=== PATIENT | male | born 1985 | race Caucasian/White ===

== ENCOUNTER 2016-11-15 04:02 | Inpatient (IN) | payer OTHER ==
[~2016-11-15] VITALS: Ht 175.3 cm; Wt 70.3 kg
[2016-11-15 06:34] VITALS: BP 154/84; PULSE 92; RESP 20; TEMP 98.5; O2SAT 98
[2016-11-15] MEDS ORDERED: MAGNESIUM HYDROXIDE SUSP 30 ML CUP PO PRN (06:45)
[2016-11-15] MEDS ORDERED: ALUMINUM/MAGNESIUM/SIMETH 30 ML CUP PO PRN (06:45)
[2016-11-15] MEDS ORDERED: ACETAMINOPHEN 325 MG TAB PO PRN (06:45)
[2016-11-15] MEDS ORDERED: LORazepam 1 MG TAB PO PRN (06:45)
[2016-11-15] MEDS ORDERED: LORazepam 2 MG/ML VIAL IM PRN (06:45)
[2016-11-15] MEDS ORDERED: NICOTINE 21 MG/24 HR PATCH T-DERMAL SCH (09:00)
[2016-11-15 12:48] VITALS: BP 156/92; PULSE 127; RESP 16; O2SAT 95
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
[2016-11-15 19:55] VITALS: BP 146/109; PULSE 83; RESP 18; TEMP 98.6; O2SAT 99
[2016-11-15] MEDS ORDERED: REMOVE OLD NICOTINE PATCH T-DERMAL SCH (21:00)
[2016-11-16 00:48] VITALS: BP 156/92; PULSE 127; RESP 16; O2SAT 95
[2016-11-16 00:55] VITALS: O2SAT 97
[2016-11-16 01:05] VITALS: BP 154/89; PULSE 107; RESP 18; O2SAT 98
[2016-11-16] MEDS ORDERED: SUCCINYLCHOLINE CHLORIDE 200 MG/10 ML VIAL ONE (01:19)
[2016-11-16] MEDS ORDERED: ETOMIDATE 20 MG/10 ML VIAL ONE (01:19)
[2016-11-16] MEDS ORDERED: ROCURONIUM INJ 50 MG/5 ML VIAL ONE (01:21)
[2016-11-16] MEDS ORDERED: PROPOFOL 1000 MG/100 ML INJ 100 ML ONE (01:22)
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
[2016-11-17] MEDS ORDERED: ACET325T PO (08:38)
[2016-11-17] MEDS ORDERED: DOCU100S G-TUBE (08:38)
[2016-11-17] MEDS ORDERED: HALO5P IM (08:38)
[2016-11-17] MEDS ORDERED: TIMO0.5S30 EACH EYE (10:04)
[2016-11-17] MEDS ORDERED: Brimonidine 0.2% Opth Soln EACH EYE (10:04)
== END 2016-11-16 01:13 | disposition short-term general hospital (02) | DRG 882 ==
LOC: H260 06:31
PROVIDERS: ADMIT Psychiatry & Neurology Psychiatry; ATTEND Psychiatry & Neurology Psychiatry
DX: F43.25 Adjustment disorder with mixed disturbance of emotions and conduct (principal); S05.32XA Ocular laceration without prolapse or loss of intraocular tissue, left eye, initial encounter; F10.20 Alcohol dependence, uncomplicated; Z59.0 Homelessness; F19.10 Other psychoactive substance abuse, uncomplicated; X78.8XXA Intentional self-harm by other sharp object, initial encounter; Y92.230 Patient room in hospital as the place of occurrence of the external cause; Z91.5 Personal history of self-harm
CPT/HCPCS: J0330

== ENCOUNTER 2016-11-16 01:24 | Inpatient (IN) | payer OTHER ==
[2016-11-16] VITALS (22 sets, daily range): BP systolic 88–115; BP diastolic 53–69; PULSE 78–108; RESP 14–16; TEMP 98–99.4; O2SAT 97–100
[2016-11-16] MEDS ORDERED: DIPHTH/TETANUS/ACEL PERTUSSIS (BOOSTER) 0.5 ML VIAL/PFS IM ONE (01:31)
[2016-11-16] MEDS ORDERED: ceFAZolin 2 GM PREMIX 50 ML ONE (01:31)
[2016-11-16 01:42] LABS: AUTOMATED NEUTROPHIL # 11.3 TH/MM3 (1.8-7.7); BASOPHIL # 0.1 TH/MM3 (0-0.2); EOSINOPHIL # 0.2 TH/MM3 (0-0.4); EOSINOPHIL % 1.8 % (0.0-4.0); HEMATOCRIT 43.9 % (39.0-51.0); LYMPH % 8.6 % (9.0-44.0); LYMPHOCYTE # 1.1 TH/MM3 (1.0-4.8); MEAN CELL VOLUME 90.6 FL (80.0-100.0); MEAN CORPUSCULAR HEMOGLOBIN 32.3 PG (27.0-34.0); MEAN CORPUSCULAR HGB CONC 35.7 % (32.0-36.0); MONO % 4.6 % (0.0-8.0); PLATELET COUNT 175 TH/MM3 (150-450); RED BLOOD COUNT 4.84 MIL/MM3 (4.50-5.90); RED CELL DISTRIBUTION WIDTH 13.7 % (11.6-17.2); WHITE BLOOD COUNT 13.4 TH/MM3 (4.0-11.0)
[2016-11-16 01:43] LABS: HEMO FLAGS AUTO DIFF
[2016-11-16 01:50] LABS: APTT (PATIENT) 23.9 SEC (24.3-30.1); PROTHROMBIN TIME - PATIENT 11.2 SEC (9.8-11.6)
--- NOTE | 2016-11-16 01:55 | RADRPT ---
EXAM DATE/TIME: 11/16/2016 01:43 [facility] COMPARISON: No previous studies available for comparison. INDICATIONS : Trauma. Foreign body stuck in left eye. RADIATION DOSE: 36.15 CTDIvol (mGy) MEDICAL HISTORY : Non-responsive. SURGICAL HISTORY : Non-responsive. ENCOUNTER: Initial ACUITY: 1 day PAIN SCALE: Non-responsive LOCATION: Left cranial TECHNIQUE: Multiple contiguous axial images were obtained of the head. Using automated exposure control and adj ustment of the mA and/or kV according to patient size, radiation dose was kept as low as reasonably a chievable to obtain optimal diagnostic quality images. FINDINGS: CEREBRUM: The ventricles are normal for age. No evidence of midline shift, mass lesion, hemorrhage or acute in farction. No extra-axial fluid collections are seen. POSTERIOR FOSSA: The cerebellum and brainstem are intact. The 4th ventricle is midline. The cerebellopontine angle i s unremarkable. EXTRACRANIAL: The visualized portion of the orbits is intact. SKULL: The calvaria is intact. No evidence of skull fracture. CONCLUSION: Normal examination. Duane Avendaño MD on November 16, 2016 at 1:53 Board Certified Radiologist. This report was verified electronically.
--- NOTE | 2016-11-16 01:56 | RADRPT ---
EXAM DATE/TIME: 11/16/2016 01:18 [facility] COMPARISON: No previous studies available for comparison. INDICATIONS : Post intubation. MEDICAL HISTORY : Unobtainable. SURGICAL HISTORY : Unobtainable. ENCOUNTER: Initial ACUITY: 1 day PAIN SCORE: Non-responsive. LOCATION: Bilateral chest FINDINGS: A single view of the chest demonstrates the lungs to be symmetrically aerated without evidence of mas s, infiltrate or effusion. The cardiomediastinal contours are unremarkable. Osseous structures are intact. CONCLUSION: Normal examination. Endotracheal tube at the level of the clavicles. Duane Avendaño MD on November 16, 2016 at 1:54 Board Certified Radiologist. This report was verified electronically.
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
--- NOTE | 2016-11-16 01:58 | RADRPT ---
EXAM DATE/TIME: 11/16/2016 01:43 [facility] COMPARISON: No previous studies available for comparison. INDICATIONS : Foreign body stuck into left eye. RADIATION DOSE: 56.55 CTDIvol (mGy) MEDICAL HISTORY : Non-responsive. SURGICAL HISTORY : Non-responsive. ENCOUNTER: Initial ACUITY: 1 day PAIN SCORE: Non-responsive LOCATION: Left facial TECHNIQUE: Volumetric scanning of the facial bones was performed. Using automated exposure control and adjustme nt of the mA and/or kV according to patient size, radiation dose was kept as low as reasonably achiev able to obtain optimal diagnostic quality images. FINDINGS: ORBITS: The orbital and infraorbital osseous structures are intact. The retroconal structures have a normal configuration. No radiopaque foreign bodies are seen. NASAL BONE: The nasal bone and maxillary spine are intact ZYGOMATIC ARCHES: Symmetric without evidence of fracture. SINUSES: The maxillary, ethmoid and frontal sinuses are intact. No air-fluid levels seen. NASAL CAVITY: The nasal septum is intact and midline. The lacrimal ducts are intact. SOFT TISSUES: No radiopaque foreign bodies seen. No soft-tissue swelling is seen. INTRACRANIAL: No intracranial air seen. CRIBIFORM PLATE: Grossly intact. CONCLUSION: Normal examination. There is some fluid in the nasopharynx and oropharynx status post intubation Duane Avendaño MD on November 16, 2016 at 1:56 Board Certified Radiologist. This report was verified electronically.
[2016-11-16 02:07] LABS: SCAN/DIFF AUTO DIFF CONFIRMED
[2016-11-16] MEDS ORDERED: fentaNYL DRIP 250 ML IV SCH ×2 (02:30→03:15)
[2016-11-16] MEDS ORDERED: MIDAZOLAM 100 MG/ML INJ 100 ML IV SCH (02:30)
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
[2016-11-16] MEDS ORDERED: ONDANSETRON HCL 4 MG/2 ML VIAL ONE (02:58)
[2016-11-16] MEDS ORDERED: PROPOFOL 1000 MG/100 ML INJ 100 ML ONE (03:07)
[2016-11-16] MEDS: SODIUM CHLOR 0.9% 1000 ML INJ 1,000 ML IV SCH ×2 (03:14→15:09)
[2016-11-16] MEDS ORDERED: ONDANSETRON HCL 4 MG/2 ML VIAL IV PRN ×2 (03:15)
[2016-11-16] MEDS ORDERED: CHLORHEXIDINE GLUCONATE 2 % 1 PACK (2 CLOTHS) TOP PRN (03:15)
[2016-11-16] MEDS ORDERED: MISCELLANEOUS NURSING INFORMATION XX SCH (03:15)
[2016-11-16] MEDS ORDERED: ACETAMINOPHEN 325 MG TAB PO PRN ×2 (03:15)
[2016-11-16] MEDS ORDERED: SODIUM CHLORIDE 0.9% FLUSH 10 ML FLUSH IVF PRN (03:15)
[2016-11-16] MEDS: DOCUSATE SODIUM 100 MG/10 ML UDC G-TUBE SCH ×2 (03:15→19:01)
[2016-11-16] MEDS ORDERED: LORazepam 2 MG/ML VIAL IV PRN (03:15)
[2016-11-16] MEDS ORDERED: METOCLOPRAMIDE HCL 10 MG/2 ML VIAL IV PRN (03:15)
[2016-11-16] MEDS ORDERED: MORPHINE SULFATE 4 MG/ML INJ IV PRN (03:15)
[2016-11-16] MEDS ORDERED: RESP: ALBUTEROL 2.5 MG/IPRATROPIUM 0.5 MG NEB (PRN) INH (03:15)
[2016-11-16] MEDS: CHLORHEXIDINE GLUCONATE 2 % 1 PACK (2 CLOTHS) TOP SCH (04:00)
[2016-11-16] MEDS: RESP: ALBUTEROL 2.5 MG/IPRATROPIUM 0.5 MG NEB (SCH) INH ×5 (04:10→20:07)
[2016-11-16] MEDS: MIDAZOLAM 100 MG/ML INJ 100 ML IV SCH ×2 (04:16→14:26)
[2016-11-16] MEDS: PROPOFOL 1000 MG/100 ML INJ 100 ML IV SCH ×4 (04:17→12:39)
[2016-11-16 05:20] LABS: INDIRECT BILIRUBIN 0.8 MG/DL (0.0-0.8); TOTAL BILIRUBIN ADULT 1.1 MG/DL (0.2-1.0)
--- NOTE | 2016-11-16 05:25 | PD ---
HPI Chief Complaint: Trauma (Alert) Time Seen by Provider: 01:36 Travel History International Travel<30 days: No Contact w/Intl Traveler<30days: No Traveled to known affect area: No History of Present Illness HPI A young male was brought to the ED for eyes injury. Patient was inpatient in psychiatric section. Patient stabbed himself the left eye and possible the right eye this evening with a marker. Patient was brought to ED for evaluation and treatment. Patient is combative and uncooperative. Unable to obtain any information from the patient. Allergies-Medications (Allergen,Severity, Reaction): Coded Allergies: No Known Allergies (Unverified , 11/16/16) Review of Systems General / Constitutional: No: Fever Eyes: Positive: Redness, Pain, No: Visual changes HENT: No: Headaches Cardiovascular: No: Chest Pain or Discomfort Respiratory: No: Shortness of Breath Gastrointestinal: No: Abdominal Pain Genitourinary: No: Dysuria Musculoskeletal: No: Pain Skin: No Rash Neurologic: No: Weakness Psychiatric: No: Depression Endocrine: No: Polydipsia Hematologic/Lymphatic: No: Easy Bruising Physical Exam Narrative As per previous dictation. Eyes examination shows conjunctival erythematous bilaterally. Fresh blood was seen around both eyes. Pupils 4 mm dilated and nonreactive. Data Data Last Documented VS Vital Signs Date Time Temp Pulse Resp B/P Pulse Ox O2 Delivery O2 Flow Rate FiO2 11/16/16 01:40 97 30 11/16/16 01:20 15.00 Orders I-Stat Profile (11/16/16 01:26) I-Stat Creatinine (11/16/16:26) Complete Blood Count With Diff (11/16/16:26) Prothrombin Time / Inr (Pt) (11/16/16:26) Act Partial Throm Time (Ptt) (11/16/16:26) Type And Screen (11/16/16:26) Chest, Single Ap (11/16/16:26) Ct Facial Bones W/O Iv Cont (11/16/16:26) Iv Access Insert/Monitor (11/16/16:26) Ecg Monitoring (11/16/16:26) Oximetry (11/16/16:26) Oxygen Administration (11/16/16:26) Ct Brain W/O Iv Contrast(Rout) (4/18/17 01:45) Admit Order (Ed Use Only) (11/16/16 01:48) Labs Laboratory Tests Test 11/16/16 01:30 White Blood Count 13.4 TH/MM3 Red Blood Count 4.84 MIL/MM3 Hemoglobin 15.7 GM/DL Bedside Hemoglobin 15.6 G/DL Hematocrit 43.9 % Bedside Hematocrit 46.0 % Mean Corpuscular Volume 90.6 FL Mean Corpuscular Hemoglobin 32.3 PG Mean Corpuscular Hemoglobin 35.7 % Concent Red Cell Distribution Width 13.7 % Platelet Count 175 TH/MM3 Mean Platelet Volume 8.5 FL Neutrophils (%) (Auto) 84.0 % Lymphocytes (%) (Auto) 8.6 % Monocytes (%) (Auto) 4.6 % Eosinophils (%) (Auto) 1.8 % Basophils (%) (Auto) 1.0 % Neutrophils # (Auto) 11.3 TH/MM3 Lymphocytes # (Auto) 1.1 TH/MM3 Monocytes # (Auto) 0.6 TH/MM3 Eosinophils # (Auto) 0.2 TH/MM3 Basophils # (Auto) 0.1 TH/MM3 CBC Comment AUTO DIFF Differential Comment AUTO DIFF CONFIRMED Prothrombin Time 11.2 SEC Prothromb Time International 1.0 RATIO Ratio Activated Partial 23.9 SEC Thromboplast Time Bedside Sodium 137 MMOL/L Bedside Potassium 4.0 MMOL/L Bedside Chloride 95 MMOL/L Bedside Blood Urea Nitrogen 18 MG/DL Bedside Creatinine 0.8 MG/DL Bedside Glucose 148 MG/DL Blood Type O POSITIVE Antibody Screen NEGATIVE MDM Medical Screen Exam Complete: Yes Emergency Medical Condition: Yes Differential Diagnosis Differential diagnosis including eyelid laceration, conjunctival laceration, rupture eye globe, orbital fracture. Narrative Course Young male with injury to both eyes from self-inflicted wounds from a marker. Patient was uncooperative and combative. I was Unable to examine the patient under the condition. Patient was intubated for protection and thorough examination of the eyes and for CT scan of the brain and facial bones. Senior Electronics Design Engineer Dr. Holt was called and came to see the patient in the ED. Trauma Alert - Level One Trauma Alert Level One: Full trauma team activate Diagnosis Diagnosis: Primary Impression: Eye injury Qualified Code: S05.91XA - Bilateral eye injuries, initial encounter Additional Impression: Psychosis Qualified Code: F29 - Psychosis, unspecified psychosis type Admitting Physician Requests: Observation Je Mendez MD Nov 16, 2016 05:25
[2016-11-16 05:58] LABS: BLOOD GAS BASE EXCESS 0.2 mmol/L (-2-2); BLOOD GAS CARBOXYHEMOGLOBIN 1.3 % (0-4); BLOOD GAS HCO3 23 mmol/L (22-26); BLOOD GAS METHEMOGLOBIN 0.8 % (0-2); BLOOD GAS O2 HGB SATURATION 97 % (90-100); BLOOD GAS OXYGEN CONTENT 20.6 Vol % (12.0-20.0); BLOOD GAS PCO2 28 mmHg (38-42); BLOOD GAS PO2 143 mmHg (61-120); BLOOD GAS TOTAL HGB 14.9 G/DL (12.0-16.0); TEMP CORR TO 98.6
[2016-11-16 05:59] LABS: CRITICAL VALUE YES; VENT SETTINGS PRVC/AC
[2016-11-16 06:00] LABS: DRAW SITE LT RADIAL; FIO2 30 %; NUMBER OF ARTERIAL PUNCTURES 1; STAT NO; ULNAR PULSE PRESENT
[2016-11-16] MEDS: SODIUM CHLORIDE 0.9% FLUSH 10 ML FLUSH IV FLUSH SCH ×2 (09:00→21:38)
[2016-11-16] MEDS: FAMOTIDINE 20 MG/2 ML VIAL IV PUSH SCH ×2 (09:35→21:37)
[2016-11-16 10:25] LABS: ANION GAP 11 MEQ/L (5-15); BICARBONATE 25.3 MEQ/L (21.0-32.0); BLOOD UREA NITROGEN 14 MG/DL (7-18); CHLORIDE 103 MEQ/L (98-107); GLOMERULAR FILTRATION RATE 83 ML/MIN (>89); HDL CHOLESTEROL 68.4 MG/DL (40.0-60.0); LDL CHOLESTEROL 54 MG/DL (0-99); POTASSIUM 3.6 MEQ/L (3.5-5.1); SODIUM (NA) 139 MEQ/L (136-145)
[2016-11-16] MEDS ORDERED: LORazepam 2 MG/ML VIAL IM PRN (11:00)
[2016-11-16] MEDS ORDERED: HALOPERIDOL LACTATE 5 MG/ML AMP IM PRN (11:00)
--- NOTE | 2016-11-16 11:04 | HHI.PYPN ---
Subjective Remarks Patient was visited for psychiatric evaluation, patient is found intubated, unable to participate and provide any information for the psychiatric assessment. As per revision of documentation in initial assessment by Dr. Burch , patient has history of polysubstance abuse. We did not have a lot of background information about this patient, but the reason he came to the hospital is because he already tried to stab himself in the chest. We dont know at this point if patient was intoxicated, or in withdrawal, manic, delirious or psychotic. Review of Systems ROS Limitations: Unresponsive, Uncooperative Objective Alert: No [place]: Situation (unable to be assessed) Mood: Other (unable to be assessed) Affect: Other (unable to be assessed) Memory Intact: Comment (unable to be assessed) Hallucinations: Other (unable to be assessed) Delusions: No (unable to be assessed) Delusion Type: Other (unable to be assessed) Suicidal: Ideation (unable to be assessed) Homicidal: Ideation (unable to be assessed) Insight/Judgment unable to be assessed Labs Test 11/16/16 11/16/16 11/16/16 11/16/16 01:30 04:03 04:34 05:48 White Blood Count 13.4 TH/MM3 Red Blood Count 4.84 MIL/MM3 Hemoglobin 15.7 GM/DL Bedside Hemoglobin 15.6 G/DL Hematocrit 43.9 % Bedside Hematocrit 46.0 % Mean Corpuscular Volume 90.6 FL Mean Corpuscular Hemoglobin 32.3 PG Mean Corpuscular Hemoglobin 35.7 % Concent Red Cell Distribution Width 13.7 % Platelet Count 175 TH/MM3 Mean Platelet Volume 8.5 FL Neutrophils (%) (Auto) 84.0 % Lymphocytes (%) (Auto) 8.6 % Monocytes (%) (Auto) 4.6 % Eosinophils (%) (Auto) 1.8 % Basophils (%) (Auto) 1.0 % Neutrophils # (Auto) 11.3 TH/MM3 Lymphocytes # (Auto) 1.1 TH/MM3 Monocytes # (Auto) 0.6 TH/MM3 Eosinophils # (Auto) 0.2 TH/MM3 Basophils # (Auto) 0.1 TH/MM3 CBC Comment AUTO DIFF Differential Comment AUTO DIFF CONFIRMED Prothrombin Time 11.2 SEC Prothromb Time International 1.0 RATIO Ratio Activated Partial 23.9 SEC Thromboplast Time Bedside Sodium 137 MMOL/L Bedside Potassium 4.0 MMOL/L Bedside Chloride 95 MMOL/L Bedside Blood Urea Nitrogen 18 MG/DL Bedside Creatinine 0.8 MG/DL Bedside Glucose 148 MG/DL Blood Type O POSITIVE Antibody Screen NEGATIVE Nasal Screen MRSA (PCR) NEGATIVE Total Bilirubin 1.1 MG/DL Direct Bilirubin 0.3 MG/DL Indirect Bilirubin 0.8 MG/DL Aspartate Amino Transf 23 U/L (AST/SGOT) Alanine Aminotransferase 20 U/L (ALT/SGPT) Alkaline Phosphatase 46 U/L Ammonia 62 MCMOL/L Total Protein 7.1 GM/DL Albumin 3.7 GM/DL Blood Gas Puncture Site LT RADIAL Blood Gas Patient Temperature 98.6 Blood Gas HCO3 23 mmol/L Blood Gas Base Excess 0.2 mmol/L Blood Gas Oxygen Saturation 97 % Arterial Blood pH 7.53 Arterial Blood Partial 28 mmHg Pressure CO2 Arterial Blood Partial 143 mmHg Pressure O2 Arterial Blood Oxygen Content 20.6 Vol % Arterial Blood 1.3 % Carboxyhemoglobin Arterial Blood Methemoglobin 0.8 % Blood Gas Hemoglobin 14.9 G/DL Oxygen Delivery Device v Blood Gas Ventilator Setting PRVC/AC Blood Gas Inspired Oxygen 30 % Test 11/16/16 09:02 Sodium Level 139 MEQ/L Potassium Level 3.6 MEQ/L Chloride Level 103 MEQ/L Carbon Dioxide Level 25.3 MEQ/L Anion Gap 11 MEQ/L Blood Urea Nitrogen 14 MG/DL Creatinine 0.80 MG/DL Estimat Glomerular Filtration 83 ML/MIN Rate Random Glucose 73 MG/DL Calcium Level 9.1 MG/DL Triglycerides Level 149 MG/DL Cholesterol Level 152 MG/DL LDL Cholesterol 54 MG/DL HDL Cholesterol 68.4 MG/DL Cholesterol/HDL Ratio 2.22 RATIO Vitals/IOs Vital Signs Date Time Temp Pulse Resp B/P Pulse Ox O2 Delivery O2 Flow Rate FiO2 11/16/16 07:40 100 30 11/16/16 06:00 86 11/16/16 04:00 98.5 16 98/58 11/16/16 01:20 15.00 Assessment & Plan Problem List: (1) Psychosis Assessment & Plan: Patient will remain in one-to-one observation with a sitter Haldol 5 mg IM/IV every 8 hours when necessary aggressive behavior agitation Would order Haldol 5 mg twice a day by mouth for psychosis Patient should be transferred to psychiatry once medically possible. We'll follow-up ICD Code: F29 Assessment & Plan Estimated LOS: days Justification for Cont. Inpt. Patient needs psychiatric hospitalization for stabilization and safety Problem Qualifiers (1) Psychosis: Qualified Code: F29 - Psychosis, unspecified psychosis type Fletcher Hartman MD Nov 16, 2016 11:04
[2016-11-16] MEDS ORDERED: SODIUM CHLORID 0.9% 500 ML INJ 500 ML IV ONE (13:00)
--- NOTE | 2016-11-16 14:17 | PD.CONS ---
History of Present Illness Service Ophthalmology Consult Requested By Dr. Mendez Reason for Consult left eye injury Primary Care Physician No Primary Care Physician Diagnoses: History of Present Illness 31 yo M who was already admitted to the psych unit for self inflicted injury. Last night he attempted to stick a marker in his left eye. Ophthalmology was called last night to evaluate for a possible ruptured globe. He was intubated and sedated by the time I arrived to examine patient. No foreign body or ruptured globe seen on exam.. CT Head/Maxillofacial normal. Currently intubated and sedated. Past Family Social History Allergies: Coded Allergies: No Known Allergies (Unverified , 11/16/16) Physical Exam Vital Signs Vital Signs Date Time Temp Pulse Resp B/P Pulse Ox O2 Delivery O2 Flow Rate FiO2 11/16/16 12:00 30 11/16/16 11:39 100 30 11/16/16 08:00 88 11/16/16 08:00 30 11/16/16 08:00 98.0 88 14 108/69 100 11/16/16 07:40 100 30 11/16/16 07:00 87 11/16/16 07:00 100 Mechanical Ventilator 30 11/16/16 06:04 100 30 11/16/16 06:00 86 11/16/16 05:12 100 30 11/16/16 04:00 108 11/16/16 04:00 30 11/16/16 04:00 96 11/16/16 04:00 98.5 87 16 98/58 98 11/16/16 01:40 97 30 11/16/16 01:40 100 100 11/16/16 01:20 100 15.00 100 Physical Exam Va unable EOM unable CVF unable Pupils 5 mm OU fixed IOP 37, 30 mm Hg Anterior exam OD - eyelid edema, conj injection and chemosis, K clear, AC deep, pupil round, lens clear OS - eyelid edema, conj injection and chemosis, K clear, AC deep, pupil round, lens clear Laboratory Laboratory Tests Test 11/16/16 11/16/16 11/16/16 11/16/16 01:30 04:03 04:34 05:48 White Blood Count 13.4 Red Blood Count 4.84 Hemoglobin 15.7 Bedside Hemoglobin 15.6 Hematocrit 43.9 Bedside Hematocrit 46.0 Mean Corpuscular Volume 90.6 Mean Corpuscular Hemoglobin 32.3 Mean Corpuscular Hemoglobin 35.7 Concent Red Cell Distribution Width 13.7 Platelet Count 175 Mean Platelet Volume 8.5 Neutrophils (%) (Auto) 84.0 Lymphocytes (%) (Auto) 8.6 Monocytes (%) (Auto) 4.6 Eosinophils (%) (Auto) 1.8 Basophils (%) (Auto) 1.0 Neutrophils # (Auto) 11.3 Lymphocytes # (Auto) 1.1 Monocytes # (Auto) 0.6 Eosinophils # (Auto) 0.2 Basophils # (Auto) 0.1 CBC Comment AUTO DIFF Differential Comment AUTO DIFF CONFIRMED Prothrombin Time 11.2 Prothromb Time International 1.0 Ratio Activated Partial 23.9 Thromboplast Time Bedside Sodium 137 Bedside Potassium 4.0 Bedside Chloride 95 Bedside Blood Urea Nitrogen 18 Bedside Creatinine 0.8 Bedside Glucose 148 Blood Type O POSITIVE Antibody Screen NEGATIVE Nasal Screen MRSA (PCR) NEGATIVE Total Bilirubin 1.1 Direct Bilirubin 0.3 Indirect Bilirubin 0.8 Aspartate Amino Transf 23 (AST/SGOT) Alanine Aminotransferase 20 (ALT/SGPT) Alkaline Phosphatase 46 Ammonia 62 Total Protein 7.1 Albumin 3.7 Blood Gas Puncture Site LT RADIAL Blood Gas Patient Temperature 98.6 Blood Gas HCO3 23 Blood Gas Base Excess 0.2 Blood Gas Oxygen Saturation 97 Arterial Blood pH 7.53 Arterial Blood Partial 28 Pressure CO2 Arterial Blood Partial 143 Pressure O2 Arterial Blood Oxygen Content 20.6 Arterial Blood 1.3 Carboxyhemoglobin Arterial Blood Methemoglobin 0.8 Blood Gas Hemoglobin 14.9 Oxygen Delivery Device v Blood Gas Ventilator Setting PRVC/AC Blood Gas Inspired Oxygen 30 Test 11/16/16 09:02 Sodium Level 139 Potassium Level 3.6 Chloride Level 103 Carbon Dioxide Level 25.3 Anion Gap 11 Blood Urea Nitrogen 14 Creatinine 0.80 Estimat Glomerular Filtration 83 Rate Random Glucose 73 Calcium Level 9.1 Triglycerides Level 149 Cholesterol Level 152 LDL Cholesterol 54 HDL Cholesterol 68.4 Cholesterol/HDL Ratio 2.22 Result Diagram: 11/16/16 0130 11/16/16 0902 Assessment and Plan Problem List: (1) Eye injury, non-penetrating Status: Acute Plan: No ruptured globe seen on exam. Unsure why bilateral pupils are dilated and fixed. Intraocular pressure elevated due to eyelid edema and conjunctival chemosis - start Alphagan/Timolol 1 drop BID OU. Yashira Holt MD Nov 16, 2016 14:17
--- NOTE | 2016-11-16 16:17 | HHI.CCPN ---
Subjective Brief History AMBLER: This is a 31-year-old male who was a patient in the psychiatric unit. Last night a trauma alert was called on this patient because he stabbed himself in the eye with a magic marker. The patient was brought down to the ED for evaluation. He was combative and uncooperative. He was intubated for protection and to obtain the appropriate scans and reports. INJURIES: NO ruptured globe. Consults: CCM. Ophthalmology. Psychiatry. 24 Hour Review/Hospital Course 11/16/2016 PTD: 0 The patient is currently sedated and mechanically ventilated, however he remains quite restless on the vent and is attempting to pull at everything. Consult to psychiatrist to obtain further history on this patient, and to begin psychiatric medications to manage his condition him properly. (Parul Gerardo) Objective Vital Signs Date Time Temp Pulse Resp B/P Pulse Ox O2 Delivery O2 Flow Rate FiO2 11/16/16 14:00 80 11/16/16 12:00 30 11/16/16 11:39 100 11/16/16 08:00 98.0 14 108/69 11/16/16 07:00 Mechanical Ventilator 11/16/16 01:20 15.00 (aPrul Gerardo) Result Diagram: 11/16/16 0130 11/16/16 0902 Other Results Laboratory Tests Test 11/16/16 05:48 Blood Gas Puncture Site LT RADIAL Blood Gas Patient Temperature 98.6 Blood Gas HCO3 23 mmol/L (22-26) Blood Gas Base Excess 0.2 mmol/L (-2-2) Blood Gas Oxygen Saturation 97 % (90-100) Arterial Blood pH 7.53 (7.380-7.420) Arterial Blood Partial 28 mmHg (38-42) Pressure CO2 Arterial Blood Partial 143 mmHg Pressure O2 (61-120) Arterial Blood Oxygen Content 20.6 Vol % (12.0-20.0) Arterial Blood 1.3 % (0-4) Carboxyhemoglobin Arterial Blood Methemoglobin 0.8 % (0-2) Blood Gas Hemoglobin 14.9 G/DL (12.0-16.0) Oxygen Delivery Device v Blood Gas Ventilator Setting PRVC/AC Blood Gas Inspired Oxygen 30 % Imaging Last [address] 11/16/16 0145 Signed Impressions: Service Date/Time: Wednesday, November 16, 2016 01:43 - CONCLUSION: Normal examination. Duane Avendaño MD Maxillofacial CT 11/16/166 Signed Impressions: Service Date/Time: Wednesday, November 16, 2016 01:43 - CONCLUSION: Normal examination. There is some fluid in the nasopharynx and oropharynx status post intubation Duane Avendaño MD Chest X-Ray 11/16/16125 Signed Impressions: Service Date/Time: Wednesday, November 16, 2016 01:18 - CONCLUSION: Normal examination. Endotracheal tube at the level of the clavicles. Duane Avendaño MD Objective Remarks GENERAL: This is a 31-year-old male sedated and mechanically ventilated however restless. SKIN: Warm and dry. HEAD: Atraumatic. Normocephalic. EYES: PERRLA. Bilateral eye lid edema. ENT: ETT / OGT. No nasal bleeding or discharge. Mucous membranes pink and moist. NECK: Trachea midline. No JVD. CARDIOVASCULAR: Regular rate and rhythm. RESPIRATORY: No accessory muscle use. Lungs are clear to auscultation. Breath sounds equal bilaterally. No distress or dyspnea. GASTROINTESTINAL: BS + x 4 quads. Abdomen soft, non-tender, nondistended. MUSCULOSKELETAL: Extremities without cyanosis, or edema. + peripheral pulses x 4 extremities. Warm with good capillary refill and sensation. MAEW. NEUROLOGICAL: Sedated and mechanically ventilated. (Parul Gerardo ) Urinary Catheter Assessment Urinary Catheter: Yes Assessment to: Continue Date of Insertion: Nov 16, 2016 (Parul Gerardo) Vascular Central Line Catheter Vascular Central Line Catheter: No (Parul Gerardo) Assessment and Plan Assessment: (1) (2) (3) Plan This is a 31-year-old psychiatric patient is status post himself in the left eye with a magic marker. INJURIES: None - NO GLOBE INJURY Assessment and plan by systems: NEUROLOGICAL: Sedated - Propofol and fentanyl and Versed drips. Begin sedation vacations daily to assess weaning capability. Pt is sedated with a RASS score of -2 Provide analgesia for comfort and pain - fentanyl HOB elevated 30 degrees + peripheral pulses x 4 extremities. Moves all extremities well. Psychiatry consult - appreciate input and assistance with medication management. Ophthalmology consult - Dr. Holt has evaluated the patient, and does not note any globe injury to either eye. She has ordered eyedrops for the patient. CARDIOVASCULAR: HR - 83-100 sinus rhythm. BP - 109/69 Continually monitor for hemodynamic instability (shock and hypotension). Follow CMP Electrolyte protocol RESPIRATORY: Vent settings : PRVC-AC 600 / 16 / 35% / 1.0 / +5 Increase PEEP carefully (to assist in oxygenation by recruiting alveoli.) Weaning - to begin after the psychiatrist evaluates the patient and establish his medication regimen. O2 Sats Monitor for hypoxemia Follow ABGs - Lung sounds - CTA Pulmonary toilet . L&S. Bronchodilators - Breathing treatments duonebs. Chest X-Ray results VAP protocol in place Labs tomorrow Chest X-Ray tomorrow GASTROINTESTINAL: Diet - NPO Bowel sounds - + x 4 quads Bowel regimen: Colace LBM : 0 RENAL / URINARY: I&O - BUN / creat 14 / 0.[address] to bedside drainage bag ENDOCRINE: BGM 73 via AM labs HEMATOLOGY: H&H 15.7 / 43.9 Continue to monitor for signs and symptoms of bleeding. Transfuse for < 7.0 Monitor patient for any bleeding complications. INFECTIOUS DISEASE: Follow CBC WBC - 13.4 Fevers - none Administer antipyretics for temp as needed. PROPHYLAXIS: VAP protocol in place GI prophylaxis: Pepcid po DVT - Mechanical VTE with SCDs. Chemical management TBD. SKIN: Warm and dry ACTIVITY: Status - BR PT and OT ordered. CASE MANAGEMENT: Consulted for assist with DC planning. Placement - disposition - return to psychiatric inpatient and as soon as medically stable. EMOTIONAL SUPPORT: Provided to patient and family. Plan of care discussed. Questions answered to the best of my knowledge. Discussed with EPOXY SPECIALIST in charge nurse at bedside during trauma rounds. This patient is currently critically ill and injured and being managed in the ICU. The trauma team will round daily, and evaluate and manage care on a daily basis. (Parul Gerardo) Attestation The exam, history, and the medical decision-making described in the above note were completed with the assistance of the mid-level provider. I reviewed and agree with the findings presented. I attest that I had a [id number] encounter with the patient on the same day, and personally performed and documented my assessment and findings in the medical record. Critical care time 38 minutes. (Monse Loja MD) Parul Gerardo Nov 16, 2016 16:17 Monse Loja MD Nov 18, 2016 02:28 Parul Gerardo Nov 16, 2016 16:17
[2016-11-16] MEDS ORDERED: DEXMEDETOMIDINE INJ 400 MCG in SODIUM CHLORIDE 0.9% INJ 96 ML IV SCH (16:45)
[2016-11-16] MEDS ORDERED: BUMETANIDE INJ 1 MG/4 ML VIAL ONE (17:36)
[2016-11-16] MEDS ORDERED: DEXAMETHASONE SOD PHOS 4 MG/ML VIAL ONE (17:44)
[2016-11-16 17:56] LABS: HEMOGLOBIN A1a 0.9 %; HEMOGLOBIN A1b 1.4 %; HEMOGLOBIN Ao 87.3 %; HEMOGLOBIN LA1C 1.6 %; HEMOGLOBIN P3 3.4 %
[2016-11-16] MEDS ORDERED: DEXAMETHASONE SOD PHOS 20 MG/5 ML VIAL IV ONE (18:45)
[2016-11-16] MEDS ORDERED: BUMETANIDE INJ 1 MG/4 ML VIAL IV PUSH ONE (18:45)
[2016-11-16] MEDS: CHLORHEXIDINE 0.12% (ORAL KIT) 15 ML CUP MT SCH (20:56)
[2016-11-16] MEDS: BRIMONIDINE TARTRATE 0.2% OPHT SOLN 5 ML BTL EACH EYE SCH (21:41)
[2016-11-16] MEDS: TIMOLOL MALEATE 0.5% OPHT SOLN 5 ML BTL EACH EYE SCH (21:42)
[2016-11-17] VITALS (12 sets, daily range): BP systolic 96–132; BP diastolic 59–96; PULSE 62–98; RESP 11–14; TEMP 98–98.9; O2SAT 95–100
[2016-11-17] MEDS: RESP: ALBUTEROL 2.5 MG/IPRATROPIUM 0.5 MG NEB (SCH) INH ×4 (01:14→12:33)
[2016-11-17] MEDS: SODIUM CHLOR 0.9% 1000 ML INJ 1,000 ML IV SCH (02:56)
[2016-11-17] MEDS: DOCUSATE SODIUM 100 MG/10 ML UDC G-TUBE SCH ×2 (02:56→15:15)
[2016-11-17] MEDS: CHLORHEXIDINE GLUCONATE 2 % 1 PACK (2 CLOTHS) TOP SCH (04:33)
[2016-11-17 04:46] LABS: AUTOMATED NEUTROPHIL # 11.3 TH/MM3 (1.8-7.7); BASOPHIL % 0.3 % (0.0-2.0); HEMATOCRIT 41.6 % (39.0-51.0); HEMO FLAGS DIFF FINAL; LYMPH % 2.6 % (9.0-44.0); LYMPHOCYTE # 0.3 TH/MM3 (1.0-4.8); MEAN CELL VOLUME 90.7 FL (80.0-100.0); MEAN CORPUSCULAR HEMOGLOBIN 31.5 PG (27.0-34.0); MEAN CORPUSCULAR HGB CONC 34.7 % (32.0-36.0); MONO % 2.3 % (0.0-8.0); NEUT % 94.8 % (16.0-70.0); PLATELET COUNT 126 TH/MM3 (150-450); RED BLOOD COUNT 4.58 MIL/MM3 (4.50-5.90); RED CELL DISTRIBUTION WIDTH 13.9 % (11.6-17.2); WHITE BLOOD COUNT 11.9 TH/MM3 (4.0-11.0)
[2016-11-17 04:52] LABS: PROTHROMBIN TIME - PATIENT 11.6 SEC (9.8-11.6)
[2016-11-17 05:05] LABS: ALT (GPT) 19 U/L (12-78); ANION GAP 8 MEQ/L (5-15); AST (GOT) 24 U/L (15-37); BICARBONATE 26.6 MEQ/L (21.0-32.0); BLOOD UREA NITROGEN 10 MG/DL (7-18); CHLORIDE 104 MEQ/L (98-107); GLOMERULAR FILTRATION RATE 112 ML/MIN (>89); MAGNESIUM 2.1 MG/DL (1.5-2.5); POTASSIUM 3.8 MEQ/L (3.5-5.1); SODIUM (NA) 139 MEQ/L (136-145)
[2016-11-17 05:07] LABS: ALKALINE PHOSPHATASE 50 U/L (45-117); TOTAL BILIRUBIN ADULT 1.1 MG/DL (0.2-1.0)
--- NOTE | 2016-11-17 06:21 | RADRPT ---
EXAM DATE/TIME: 11/17/2016 05:43 [facility] COMPARISON: CHEST SINGLE AP, November 16, 2016, 1:18. INDICATIONS : Shortness of breath. MEDICAL HISTORY : None. SURGICAL HISTORY : None. ENCOUNTER: Initial ACUITY: 1 day PAIN SCORE: Non-responsive. LOCATION: Bilateral chest FINDINGS: A single view of the chest demonstrates the lungs to be symmetrically aerated without evidence of mas s, infiltrate or effusion. The cardiomediastinal contours are unremarkable. Osseous structures are intact. CONCLUSION: Normal examination. Duane Avendaño MD on November 17, 2016 at 6:20 Board Certified Radiologist. This report was verified electronically.
[2016-11-17] MEDS: CHLORHEXIDINE 0.12% (ORAL KIT) 15 ML CUP MT SCH (08:00)
[2016-11-17] MEDS: FAMOTIDINE 20 MG/2 ML VIAL IV PUSH SCH (08:28)
[2016-11-17] MEDS: SODIUM CHLORIDE 0.9% FLUSH 10 ML FLUSH IV FLUSH SCH (08:28)
[2016-11-17] MEDS: BRIMONIDINE TARTRATE 0.2% OPHT SOLN 5 ML BTL EACH EYE SCH (08:28)
[2016-11-17] MEDS ORDERED: HALO5P IM (08:38)
[2016-11-17] MEDS ORDERED: DOCU100S G-TUBE (08:38)
[2016-11-17] MEDS ORDERED: ACET325T PO (08:38)
[2016-11-17] MEDS: TIMOLOL MALEATE 0.5% OPHT SOLN 5 ML BTL EACH EYE SCH (08:45)
[2016-11-17] MEDS ORDERED: TIMO0.5S30 EACH EYE (10:04)
[2016-11-17] MEDS ORDERED: Brimonidine 0.2% Opth Soln EACH EYE (10:04)
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
== END 2016-11-17 17:04 | DRG 124 ==
LOC: NEPI 01:24 → NEDA 01:54 → EDBD 01:54 → MERGE 01:54 → N03B 02:08
PROVIDERS: ADMIT Surgery; ATTEND Surgery
PROC: 0BH17EZ Insertion of Endotracheal Airway into Trachea, Via Natural or Artificial Opening (ICD-10-PCS; principal; 2016-11-16)
PROC: 5A1935Z Respiratory Ventilation, Less than 24 Consecutive Hours (ICD-10-PCS; 2016-11-16)
DX: S05.8X2A Other injuries of left eye and orbit, initial encounter (principal); J96.90 Respiratory failure, unspecified, unspecified whether with hypoxia or hypercapnia; H11.423 Conjunctival edema, bilateral; H02.844 Edema of left upper eyelid; H02.841 Edema of right upper eyelid; X83.8XXA Intentional self-harm by other specified means, initial encounter; Y92.89 Other specified places as the place of occurrence of the external cause; F29 Unspecified psychosis not due to a substance or known physiological condition
CPT/HCPCS: 31500; 36600; 70450; 70486; 71010; 80048; 80053; 80061; 80076; 82140; 82435; 82565; 82805; 82947; 82948; 83036; 83735; 84100; 84132; 84295; 84520; 85025; 85610; 85730; 86850; 86900; 86901; 87641; 90471; 90715; 94002; 94640; 94664; 96374; J0690; J1100; J1630; J2060; J2250; J2405; J3010; J7030; J7040

== ENCOUNTER 2016-11-17 10:54 | Inpatient (IN) | payer OTHER ==
[~2016-11-17 10:54] MED LIST: ACET325T PO; Brimonidine 0.2% Opth Soln EACH EYE; DOCU100S G-TUBE; HALO5P IM; TIMO0.5S30 EACH EYE
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
[2016-11-17] MEDS ORDERED: LORazepam 2 MG/ML VIAL IM PRN (20:00)
[2016-11-17] MEDS ORDERED: ALUMINUM/MAGNESIUM/SIMETH 30 ML CUP PO PRN (20:00)
[2016-11-17] MEDS ORDERED: MAGNESIUM HYDROXIDE SUSP 30 ML CUP PO PRN (20:00)
[2016-11-17 20:01] VITALS: BP 139/67; PULSE 86; RESP 18; TEMP 97.7; O2SAT 97
[2016-11-17] MEDS: LORazepam 1 MG TAB PO PRN (20:40)
[2016-11-17] MEDS ORDERED: HALOPERIDOL LACTATE 5 MG/ML AMP IM PRN (21:30)
[2016-11-17] MEDS ORDERED: ONDANSETRON HCL 4 MG/2 ML VIAL IV PUSH PRN (21:30)
[2016-11-17] MEDS ORDERED: RESP: ALBUTEROL 2.5 MG/IPRATROPIUM 0.5 MG NEB (PRN) NEB (21:30)
[2016-11-17] MEDS: ACETAMINOPHEN 325 MG TAB PO PRN (21:45)
[2016-11-17] MEDS: MORPHINE SULFATE 4 MG/ML INJ IV PUSH PRN (22:46)
[2016-11-17] MEDS: TIMOLOL MALEATE 0.5% OPHT SOLN 5 ML BTL EACH EYE SCH (23:00)
[2016-11-17] MEDS ORDERED: FAMOTIDINE 20 MG/2 ML VIAL IV PUSH SCH (23:00)
[2016-11-17] MEDS: BRIMONIDINE TARTRATE 0.2% OPHT SOLN 5 ML BTL EACH EYE SCH (23:00)
[2016-11-18] MEDS: MORPHINE SULFATE 4 MG/ML INJ IV PUSH PRN ×6 (02:35→20:29)
[2016-11-18 06:02] VITALS: BP 142/87; PULSE 102; RESP 16; TEMP 98.3; O2SAT 96
--- NOTE | 2016-11-18 08:10 | HHI.PR ---
Subjective Remarks Follow-up on patient with self-inflicted bilateral eye injury resulting in bilateral complete loss of vision. Discussed with nursing staff. Patient also admits to sticking marker in both nostrils, both the ears and in the throat. Patient is having increasing complaints of sore throat and painful swallowing with difficulty. Reports a burning sensation in the throat. Patient continues have complete loss of vision in both eyes. Pain not very well controlled on current pain regimen only dropping his pain level from a 9/10 to 7/10. Objective Vitals Vital Signs Date Time Temp Pulse Resp B/P Pulse Ox O2 Delivery O2 Flow Rate FiO2 11/18/16 06:02 98.3 102 16 142/87 96 11/17/16 20:01 97.7 86 18 139/67 97 I/O 11/17/16 11/17/16 11/17/16 11/18/16 11/18/16 11/18/16 07:00 15:00 23:00 07:00 15:00 23:00 Intake Total 1080 ml 480 ml Balance 1080 ml 480 ml Intake Oral 1080 ml 480 ml # Voids 2 1 # Bowel Movements 2 Objective Remarks GENERAL: This is a well-nourished, well-developed patient, in no apparent distress. Flat affect. SKIN: Warm and dry. HEAD: Atraumatic. Normocephalic. EYES: Pupils dilated and fixed, non-reactive to light. Complete loss of vision. Orbit edema noted, R>L, some subconjunctival hemorrhage. ENT: Nose without bleeding, purulent drainage or septal hematoma. Airway patent. Erythema with whitish plaque noted in her pharynx tonsils. NECK: Trachea midline. No lymphadenopathy. Tenderness noted to palpation anterior neck. CARDIOVASCULAR: Regular rate and rhythm without murmurs, gallops, or rubs. No JVD. RESPIRATORY: Clear to auscultation. Breath sounds equal bilaterally. No wheezes , rales, or rhonchi. GASTROINTESTINAL: Abdomen soft, non-tender, nondistended. No guarding. MUSCULOSKELETAL: Extremities without clubbing, cyanosis, or edema. NEUROLOGICAL: Awake and alert. Normal speech. Medications and IVs Current Medications Medications (Trade) Dose Ordered Sig/Eulalia Route Start Time Stop Time Status Last Admin (Ativan) 1 mg Q6H PRN PO 11/17/16 20:00 11/17/16 20:40 (Ativan Inj) 1 mg Q6H PRN IM 11/17/16 20:00 (Tylenol) 650 mg Q4H PRN PO 11/17/16 20:00 11/17/16 21:45 (Milk Of Magnesia Liq) 30 ml DAILY PRN PO 11/17/16 20:00 (Mag-Al Plus Susp Liq) 30 ml Q6H PRN PO 11/17/16 20:00 (Habitrol 21 Mg Patch.24 Hr) 1 patch DAILY T-DERMAL 11/18/16 09:00 Miscellaneous Information 1 HS T-DERMAL 11/18/16 21:00 (Morphine Inj) 2 mg Q3H PRN IV PUSH 11/17/16 21:30 11/18/16 06:00 (Haldol Inj) 2 mg Q6H PRN IM 11/17/16 21:30 (Alphagan 0.2% Opth Soln) 1 drop Q12HR EACH EYE 11/17/16 23:00 11/17/16 23:00 (Timoptic 0.5% Opth Soln) 1 drop Q12HR EACH EYE 11/17/16 23:00 11/17/16 23:00 (Zofran Inj) 4 mg Q6H PRN IV PUSH 11/17/16 21:30 (Pepcid) 20 mg BID PO 11/18/16 09:00 A/P Problem List: (1) Psychosis ICD Code: F29 Status: Acute (2) Eye injury ICD Code: S05.90XA Status: Acute Assessment and Plan Mr. Arshad is a 31 year old male who was discharged from ICU on 11/17/2016 after being treated for self inflicted bilateral eye injury. He was discharged to psychiatry unit and hospitalist service was consulted for medical management. Patient continues to have fixed, dilated pupils and complete loss of vision. Schizophrenia Depression - Management per psychiatry. - Patient is currently calm, cooperative. Self-inflicted bilateral eye injury Complete loss of vision, bilaterally - Dr. Holt (Ophthalmology) evaluated patient and indicated that globes were not ruptured. - Fixed, dilated pupils were noted by Dr. Holt's evaluation as well. - CT maxillofacial images reveal lens appear to be non-displaced. - Another evaluation by Dr. Holt would be very useful. We do not have any explanation for the vision loss. - Neurology consult for an evaluation as well/pending Bilateral eye pain - secondary to self inflicted trauma as stated above - We'll adjust pain medication regimen to optimize control - will hold off on oral narcotics at this time secondary to sore throat/ irritation - Increased dose of morphine to 3mg q 3h prn pain Thrush - Magic mouthwash 4 times a day - Monitor patient's response DVT prophylaxis - encourage ambulation - Ana/HINA cleary Discussed with patient, nursing staff and Dr. John Lara,Dianna COBOS Nov 18, 2016 08:10
[2016-11-18] MEDS: FAMOTIDINE 20 MG TAB PO SCH ×2 (09:00→20:28)
[2016-11-18] MEDS: NICOTINE 21 MG/24 HR PATCH T-DERMAL SCH (09:00)
[2016-11-18] MEDS: NYSTAT/DIPHENHY/LIDO MOUTHWASH (Adult) 120ML SWISH-SWAL SCH ×4 (09:00→20:27)
[2016-11-18] MEDS: TIMOLOL MALEATE 0.5% OPHT SOLN 5 ML BTL EACH EYE SCH ×2 (09:58→20:27)
[2016-11-18] MEDS: BRIMONIDINE TARTRATE 0.2% OPHT SOLN 5 ML BTL EACH EYE SCH ×2 (09:58→20:28)
[2016-11-18 10:58] LABS: ANION GAP 6 MEQ/L (5-15); BICARBONATE 30.6 MEQ/L (21.0-32.0); BLOOD UREA NITROGEN 9 MG/DL (7-18); CHLORIDE 101 MEQ/L (98-107); GLOMERULAR FILTRATION RATE 99 ML/MIN (>89); HDL CHOLESTEROL 63.6 MG/DL (40.0-60.0); LDL CHOLESTEROL 60 MG/DL (0-99); SODIUM (NA) 138 MEQ/L (136-145)
[2016-11-18 11:08] LABS: POTASSIUM 2.9 MEQ/L (3.5-5.1)
--- NOTE | 2016-11-18 11:50 | HHI.HP ---
Provisional Diagnosis Admission Date Nov 17, 2016 at 10:54 [place] I. Unspecified psychosis, r/o substance-induced psychosis, y/o schizophrenia, polysubstance dependence, including amphetamines, cocaine, marijuana, alcohol [place] II. Deferred [place] III. HTN, gout [place] IV. No family support, unemployment, continues use of multiple psychoactive substances [place] V. 35 Certification of Person's Competence To Provide Express and Informed Consent I have personally examined Cal Arshad , a person being served at [facility] on, Nov 18, 2016 11:16. Express and informed consent means consent voluntarily given in writing, by a competent person, after sufficient explanation and disclosure of the subject matter involved to enable the person to make a knowing and willful decision without any element of force, fraud, deceit, duress, or other form of constraint or coercion. This person is 18 years of age or older, is not now known to be incompetent to consent to treatment with a guardian advocate, and does not have a health care surrogate or proxy currently making medical treatment decisions. I have found this person to be one of the following: [] Competent to provide express and informed consent, as defined above, for voluntary admission to this facility and is competent to provide express and informed consent for treatment. He/she has the consistent capacity to make well reasoned, willful, and knowing decisions concerning his or her medical or mental health treatment. The person fully and consistently understands the purpose of the admission for examination/placement and is fully capable of personally exercising all rights assured [place] Incompetent to provide express and informed consent to voluntary admission, and this is incompetent to provide express and informed consent to treatment. The person must be transferred to involuntary status and a petition for a guardian advocate filed with the Circuit Court. [X] Refusing to provide express and informed consent to voluntary admission but is competent to provide express and informed consent for treatment. The person must be discharged or transferred to involuntary status. Form shall be completed within 24 hours of a person's arrival at the receiving facility and filed in the clinical record of each person: 1. Admitted on a voluntary basis 2. Permitted to provide express and informed consent to his/her own treatment 3. Allowed to transfer from involuntary to voluntary status 4. Prior to permitting a person to consent to his or her own treatment after having been previously found incompetent to consent to treatment. History of Present Illness Capacity: Has Capacity HPI The patient is a 31-year-old descending man, single, unemployed, homeless , with psychiatric history of polysubstance dependence, including methamphetamines, cocaine, cannabis, heroine and alcohol, 1 previous psychiatric hospitalization related with psychoactive induced psychosis, no previous suicidal attempts, history of inpatient detox/rehabilitation programs, medical history of hypertension and gout. Patient was initially admitted in psychiatry and seen by Dr. Burch due to a suicidal attempt by stabbing his neck , but while in the psychiatric floor he inserted a pain in his left and right eyes and for this reason he was transferred to the ED. Patient was brought to the ED and was intubated by emergency department attending for airway protection due to extreme agitation and combativeness. Patient was evaluated by shirt folder Dr. Holt and was subsequently admitted to ICU. Ophthalmology evaluation indicated no ruptured globe. Intraocular pressure was elevated due to eyelid edema and conjunctival ecchymosis. Patient continues to have fixed, dilated pupils and complete loss of vision. Today on psychiatric evaluation patient is following his bed calm and cooperative. Patient was interviewed by psychiatric team composed of social service manager, nurse in charge and psychiatrist. Patient seems to be logical, coherent and relevant. He explains that he doesn't really know what happened and he feels ashamed for what he did with his eyes. He says that he was not himself and he has been hearing voices telling him to kill himself. He also has been seeing things "people, demons and shadows". Patient states that perceptual disturbances are usually related to the use of drugs. He says that for the last years he has been continuously using alcohol every day, but also every time he came he uses heroine, amphetamines, [place], K2, marijuana and cocaine. He says that he has been unable to stop using drugs and for this reason he has lost everything that has meaning in his life, including his family and friends. He says that he understands that he is dysfunctional human being and a charge for the society and he becomes very depressed for this reason. Now, when he is stabbing himself in his neck he was very paranoid after using multiple psychoactive substances and he thought that people were running after him in order to harm him. Regarding inserting a pain in his eyes and eating his ears, he says that this is an idea that he had had already in the past in the context of intoxication when he is having visual and auditory hallucinations. At this moment the patient reports depression, hopelessness, helplessness, severe anhedonia, but he denies suicidal and homicidal ideation, he denies visual and auditory hallucinations. Patient says that he would love to be a functional person, to find a job and go back to that human being he was. Patient gave us permission to speak with his mother, but he says that he doesn't want to speak with any family. He is fully oriented 3, no confusion, no delirium, no gross cognitive impairment observed.. Review of Systems Constitutional: DENIES: Diaphoretic episodes, Fatigue, Fever, Weight gain, Weight loss, Chills, Dizziness, Change in appetite, Night Sweats Endocrine: DENIES: Heat/cold intolerance, Polydipsia, Polyuria, Polyphagia Eyes: COMPLAINS OF: Eye pain (loss of vision bilaterally ), DENIES: Blurred vision, Diplopia, Eye inflammation, Vision loss, Photosensitivity, Double Vision Ears, nose, mouth, throat: DENIES: Tinnitus, Hearing loss, Vertigo, Nasal discharge, Oral lesions, Throat pain, Hoarseness, Ear Pain, Running Nose, Epistaxis, Sinus Pain, Toothache, Odynophagia Respiratory: DENIES: Apneas, Cough, Snoring, Wheezing, Hemoptysis, Sputum production, Shortness of breath Cardiovascular: DENIES: Chest pain, Palpitations, Syncope, Dyspnea on Exertion , PND, Lower Extremity Edema, Orthopnea, Claudication Immunologic/allergic: DENIES: Eczema, Urticaria Psychiatric: COMPLAINS OF: Depression, DENIES: Anxiety, Confusion, Mood changes, Hallucinations, Agitation, Suicidal Ideation, Homicidal Ideation, Delusions Past Psych History Violence risk - self (6 mos) Patient has an elevated risk to harm himself Substance Abuse History Drugs/Alcohol past 12 months Patient endorses daily use of alcohol, almost everyday use of marijuana, cocaine , methamphetamines, heroine Past Family Social History Coded Allergies: No Known Allergies (Unverified , 11/15/16) Active Scripts Timolol Opth Drops 0.5 % Soln1 Drop EACH EYE Q12HR 30 Days Prov:Parul GerardoP 11/17/16 [Brimonidine Tartrate] (Alphagan 0.2% Opth Soln)100 DROP/5 ML SOLN No Conflict Check1 Drop EACH EYE BID Prov:Parul Gerardo LANDON 11/17/16 Haloperidol Inj (Haldol Inj)5 Mg/Ml Inj5 Mg IM Q8HR PRN (AGITATION ) 15 Days Prov:Elias Gerardoine Kip PRODUCT MANAGER [employer]CIAL SERVICES 11/17/16 Docusate Sodium Liq 50 Mg/5 Ml [id number] Mg G-TUBE Q12H 30 Days Prov:AkinParul Kip PRODUCT MANAGER [employer] 11/17/16 Acetaminophen 325 Mg [id number] Mg PO Q6H PRN (PAIN 1-10 AND/OR FEVER >101F) 30 Days Prov:Parul Gerardo LANDON 11/17/16 Current Medications Medications (Trade) Dose Ordered Sig/Eulalia Route Start Time Stop Time Status Last Admin (Ativan) 1 mg Q6H PRN PO 11/17/16 20:00 11/17/16 20:40 (Ativan Inj) 1 mg Q6H PRN IM 11/17/16 20:00 (Tylenol) 650 mg Q4H PRN PO 11/17/16 20:00 11/17/16 21:45 (Milk Of Magnesia Liq) 30 ml DAILY PRN PO 11/17/16 20:00 (Mag-Al Plus Susp Liq) 30 ml Q6H PRN PO 11/17/16 20:00 (Habitrol 21 Mg Patch.24 Hr) 1 patch DAILY T-DERMAL 11/18/16 09:00 Miscellaneous Information 1 HS T-DERMAL 11/18/16 21:00 (Haldol Inj) 2 mg Q6H PRN IM 11/17/16 21:30 (Alphagan 0.2% Opth Soln) 1 drop Q12HR EACH EYE 11/17/16 23:00 11/18/16 09:58 (Timoptic 0.5% Opth Soln) 1 drop Q12HR EACH EYE 11/17/16 23:00 11/18/16 09:58 (Zofran Inj) 4 mg Q6H PRN IV PUSH 11/17/16 21:30 (Pepcid) 20 mg BID PO 11/18/16 09:00 11/18/16 09:00 (Morphine Inj) 3 mg Q3H PRN IV PUSH 11/18/16 09:30 11/18/16 09:59 (Magic Mouthwash Adult Liq) 5 ml QID SWISH-SWAL 11/18/16 09:00 (risperDAL) 1 mg Q12HR PO 11/18/16 11:15 UNV Family History Patient has several family member with alcohol addiction Social History Patient was born and raised in [place], he was raised by mother and father, he is homeless, but his family lives in [place], he is single, never , no kids, he is unemployed, his highest level of education is high school Patient's Strengths (min. 2) Verbal communication Physical Exam On physical exam patient has a very red sclera, loss of vision, not psychomotor retardation or agitation, no tremors, no withdrawal symptoms, no EPS present Vital Signs Vital Signs Date Time Temp Pulse Resp B/P Pulse Ox O2 Delivery O2 Flow Rate FiO2 11/18/16 06:02 98.3 102 16 142/87 96 I/O 11/17/16 11/17/16 11/18/16 08:00 16:00 00:00 Intake Total 1080 ml Balance 1080 ml Mental Status Examination Appearance looking man, age appearing, bilateral red sclera, calm, cooperative and pleasant Speech: Unremarkable Orientation: x3 Memory: Unremarkable Thought Process: Logical Thought Content: Unremarkable Hallucination Type: None Attention and Concentration: Good Suicidal Ideation: Yes Previous Suicide Attempts: Yes Homicidal Ideation: No Previous Homicide Attempts: No Insight: Fair Judgment: Impulsive Affect: Sad Mood: Sad Motor Activity: Normal gait Assessment & Plan Problem List: (1) Psychosis Assessment & Plan: On psychiatric evaluation today the patient reports depressive symptoms, consisting in sadness, anhedonia, hopelessness, helplessness, generalized pessimism, decreased sleep, poor appetite, most probably related with ongoing/sustained severe polysubstance dependence, he denies suicidal and homicidal ideation at this moment he denies visual and auditory hallucinations. Recent suicidal attempt by cutting his neck and posteriorly self harming behavior by inserting of pain in his eyes seems to be secondary to perceptual disturbances consistent on scary visual hallucinations and commanding in type auditory hallucinations of voices telling him to kill himself related with multiple drugs intoxication/withdrawal, rather than secondary to a primary major psychiatric illness such as schizophrenia. However , more longitudinal observation, close monitoring of behavior, mood and thought processes is needed in order to assure the etiology of this psychosis. Patient definitely meets criteria for psychiatric hospitalization for stabilization and safety. He needs to continue in one-to-one observation for safety in the unit. We'll start Risperdal 1 mg twice a day for psychosis. biscuit factory worker intervention is needed for psychosocial assessment, counseling, discharge planning, collateral information. She will participate in individual and group therapies once he is able to. Hospitalist consult to follow up underlying medical illnesses. Will consult psychiatry for second opinion. Extensive support, motivation and psychoeducation provided. We will consider starting an antidepressant. Order EKG for QTC baseline. ICD Code: F29 Assessment & Plan Estimated LOS: days Fletcher Hartman MD Nov 18, 2016 11:50
[2016-11-18] MEDS: risperiDONE 1 MG TAB PO SCH ×2 (12:16→20:28)
--- NOTE | 2016-11-18 14:14 | RADRPT ---
EXAM DATE/TIME: 11/18/2016 13:08 [place] COMPARISON: CT BRAIN W/O CONTRAST, November 16, 2016, 1:43. INDICATIONS : Mass. Patient punctured both eye balls. CONTRAST: 20 cc Omniscan (gadodiamide) IV MEDICAL HISTORY : None. SURGICAL HISTORY : None. ENCOUNTER: Initial ACUITY: 3 day PAIN SCORE: 0/10 LOCATION: Head. TECHNIQUE: Multiplanar, multisequence MRI of the brain was performed both prior to and following the administrat ion of paramagnetic contrast. FINDINGS: There is no evidence for intracranial hemorrhage, mass effect, mass lesions, edema, or extra-axial fl uid collections. The ventricles are normal size for the patient's age. There are no signs of acute infarction for technique. The diffusion portion, and postcontrast portion are unremarkable. CONCLUSION: Unremarkable study. Raúl Mock MD on November 18, 2016 at 14:07 Board Certified Radiologist. This report was verified electronically.
--- NOTE | 2016-11-18 14:40 | RADRPT ---
EXAM DATE/TIME: 11/18/2016 13:08 COMPARISON: MRI BRAIN W & W/O CONTRAST, November 18, 2016, 13:08. INDICATIONS : Bilateral eye injujry, proptosis, ecchymosis, limited ocular mot, dilated pupils and thrombosis. Destinee ent punctured both eyes and stabbed himself in the neck. CONTRAST: 20 cc Omniscan (gadodiamide) IV MEDICAL HISTORY : None. SURGICAL HISTORY : None. ENCOUNTER: Initial ACUITY: 3 day PAIN SCORE: 0/10 LOCATION: Head. FINDINGS: The superior sagittal sinus, inferior sagittal sinus, transverse sinuses, straight sinus, sigmoid sin uses are all patent without evidence for thrombus. Slight dural fold indentation is seen on the left transverse sinus. CONCLUSION: Unremarkable study. Raúl Mock MD on November 18, 2016 at 14:36 Board Certified Radiologist. This report was verified electronically.
[2016-11-18] MEDS ORDERED: GADODIAMIDE PF 287 MG/ML 20 ML VIAL (for RAD MRI) IV ONE (15:19)
--- NOTE | 2016-11-18 16:42 | PD.CONS ---
History of Present Illness Service Ophthalmology Consult Requested By Reason for Consult loss of vision OU Primary Care Physician No Primary Care Physician Diagnoses: History of Present Illness 31 yo M with schizophrenia who was admitted to psych [facility] earlier this week and while there, got a hold of a marker and tried to stab his eyes with the end of it. I was called to evaluate the patient Tuesday night and found no ruptured globe on exam. No history was able to be obtained since he was intubated. The intraocular pressure was high at the time (30s) and his pupils were both fixed and dilated. The CT showed no head or orbital trauma. He was started on eyedrops to lower the pressure. Today the patient states he is completely blind in both eyes and cannot see shapes or lights. He also says he has a throbbing pain/pressure in both eyes. No significant ocular history. MRI/MRV with and without contrast done today were both normal. I spoke to the radiologist who confirmed there was no optic nerve/ocular pathology that he could see on the scan. Past Family Social History Allergies: Coded Allergies: No Known Allergies (Unverified , 11/15/16) Physical Exam Vital Signs Vital Signs Date Time Temp Pulse Resp B/P Pulse Ox O2 Delivery O2 Flow Rate FiO2 11/18/16 06:02 98.3 102 16 142/87 96 11/17/16 20:01 97.7 86 18 139/67 97 Physical Exam Va NLP OU EOM full OU CVF unable Pupils OD 4 mm fixed, OS 5 mm fixed IOP 15 mm Hg OU Anterior exam OD - eyelid edema and ecchymoses, subconjunctival hemorrhage and chemosis, K clear, AC deep, pupil round, lens clear OS - eyelid edema, subconjunctival hemorrhage and chemosis, K clear, AC deep, pupil round, lens clear Dilated exam OD - ON s/p/f, ves normal, vit clear, retina flat OS - ON s/p/f, ves normal, vit clear, retina flat Laboratory Laboratory Tests Test 11/18/16 10:15 Sodium Level 138 Potassium Level 2.9 Chloride Level 101 Carbon Dioxide Level 30.6 Anion Gap 6 Blood Urea Nitrogen 9 Creatinine 0.89 Estimat Glomerular Filtration 99 Rate Random Glucose 115 Calcium Level 8.3 Triglycerides Level 67 Cholesterol Level 137 LDL Cholesterol 60 HDL Cholesterol 63.6 Cholesterol/HDL Ratio 2.15 Result Diagram: 11/18/16 1015 Assessment and Plan Problem List: (1) Functional blindness Status: Acute Plan: Most likely cause of patient's loss of vision. Causes of bilateral pupil dilation/loss of vision could be increased ICP, traumatic optic neuropathy, drug -induced, iris damage, cortical damage. With a normal MRI brain, it is most likely functional vision loss. I would recommend a consult with a Neuro- Carbon Accountant once the patient is stable to confirm this diagnosis. Yashira Holt MD Nov 18, 2016 16:42
[2016-11-18 16:43] LABS: HEMOGLOBIN A1a 0.7 %; HEMOGLOBIN A1b 1.4 %; HEMOGLOBIN Ao 87.1 %; HEMOGLOBIN P3 3.4 %
[2016-11-18 18:31] VITALS: BP 114/60; PULSE 100; RESP 16; TEMP 98.1; O2SAT 95
[2016-11-18] MEDS: POTASSIUM CHLOR 10 MEQ PREMIX 100 ML IV SCH ×3 (19:43→23:13)
[2016-11-18] MEDS: REMOVE OLD NICOTINE PATCH T-DERMAL SCH (20:35)
--- NOTE | 2016-11-18 23:44 | MB ---
cc: ARMNADO MEZA MD DATE OF CONSULTATION 11/18/16 REASON FOR CONSULTATION Bilateral fixed dilated pupils status post self-inflicted injury to the eyes. HISTORY OF PRESENT ILLNESS Mr. Arshad is a 31-year-old male who was admitted to the psychiatry unit after afflicting self injury to both eyes, ears, neck and throat by a marker. He was admitted to the ICU and discharged on 11/17/2016 and transferred to the psychiatry unit. Initially, he was brought to the ER after he stabbed himself in the left eye and right eye with a marker. The patient was intubated for airway protection due to extreme agitation and combativeness. Initially, evaluated by Dr. Holt, gas booster engineer and then admitted to ICU. There was no indication of a ruptured globe. Intraocular pressure was elevated, eyelid edema conjunctival ecchymosis. Then the patient reported complete loss of vision and bilateral eye pain as per review of the medical records the intraocular pressure was high during the initial evaluation (30s and the pupils were both fixed and dilated). Initial head CT scan showed no head or orbital trauma and no acute intracranial pathology. He was initially started IV eye drops to lower the pressure. REVIEW OF SYSTEMS A 12-point review of systems is negative except for what is stated in the HPI. PAST MEDICAL HISTORY Schizophrenia and depression. PAST SURGICAL HISTORY No major surgery. ALLERGIES No known allergies. ACTIVE MEDICATIONS 1. Tylenol. 2. Famotidine. 3. Lorazepam. 4. Timolol ophthalmic solution. FAMILY HISTORY Both parents used to abuse drugs and alcohol. SOCIAL HISTORY Light smoker. Drinks heavily, 99% proof and 50% alcohol drinks until he blacks out and he reports using all kinds of drugs. PHYSICAL EXAMINATION GENERAL: Well-developed, well-nourished patient, good historian, in no apparent distress. Flat affect and mood. HEENT: Bilateral eye swollen closed due to bilateral ptosis and swollen. It is injected eyes, ecchymotic eyes with bilateral fixed dilated pupil, complete left loss of vision. Intact hearing. NECK: No lymphadenopathy. Supple. No signs of meningeal irritation. Scar of previous stab on the left side of the neck. CARDIOVASCULAR: regular rate and rhythm. RESPIRATORY: Clear to auscultation. No wheezes. GASTROINTESTINAL: Soft abdominal, nontender. MUSCULOSKELETAL: Extremities without clubbing, cyanosis or edema. NEUROLOGICAL: Awake, alert, oriented to time, person and place. Intact speech. Intact speech content. Cranial nerve examination revealed bilateral fixed dilated pupils, bilateral ptosis and lid swelling. No external ocular motility is noted to any direction, the eyes are in the prime position. Intact facial sensation. No facial asymmetry. Reflexes 2+ bilateral and symmetrical. Plantars bilaterally downgoing. Motor examination, sensory examination are intact. DIAGNOSTIC IMPRESSION 1. Psychosis/schizophrenia. 2. Self-harm behavior. 3. Self-inflicted bilateral eye injury. 4. Bilateral complete loss of vision with fixed dilated pupils. 5. ? Functional blindness I ordered MRI and MRV to rule out a possible venous sinus thrombosis. They both were reported as unremarkable. PLAN 1. Neuro checks q. 4 hourly. 2. Neurological examination is nonfocal with unremarkable neuro imaging. 3. Need reevaluation by ophthalmology, recommendations are appreciated. Please call for any questions. Thank you for the opportunity to participate in the care of your patient. MD OVIDIO Henry/PADILLA /10:23 PM /11:21 PM VERONICA
[2016-11-19] MEDS: POTASSIUM CHLOR 10 MEQ PREMIX 100 ML IV SCH ×3 (01:08→06:35)
[2016-11-19 05:50] LABS: BASOPHIL % 0.2 % (0.0-2.0); EOSINOPHIL # 0.2 TH/MM3 (0-0.4); EOSINOPHIL % 2.7 % (0.0-4.0); HEMATOCRIT 37.5 % (39.0-51.0); HEMO FLAGS DIFF FINAL; LYMPH % 11.9 % (9.0-44.0); LYMPHOCYTE # 1.1 TH/MM3 (1.0-4.8); MEAN CELL VOLUME 90.5 FL (80.0-100.0); MEAN CORPUSCULAR HEMOGLOBIN 32.3 PG (27.0-34.0); MEAN CORPUSCULAR HGB CONC 35.6 % (32.0-36.0); MONO % 7.7 % (0.0-8.0); NEUT % 77.5 % (16.0-70.0); PLATELET COUNT 145 TH/MM3 (150-450); RED BLOOD COUNT 4.14 MIL/MM3 (4.50-5.90)
[2016-11-19 06:15] LABS: POTASSIUM 3.7 MEQ/L (3.5-5.1)
[2016-11-19 06:24] VITALS: BP 129/77; PULSE 87; RESP 16; TEMP 99.4; O2SAT 96
[2016-11-19] MEDS: BRIMONIDINE TARTRATE 0.2% OPHT SOLN 5 ML BTL EACH EYE SCH ×2 (09:00→21:04)
[2016-11-19] MEDS: NICOTINE 21 MG/24 HR PATCH T-DERMAL SCH (09:00)
[2016-11-19] MEDS: NYSTAT/DIPHENHY/LIDO MOUTHWASH (Adult) 120ML SWISH-SWAL SCH ×4 (09:57→21:00)
[2016-11-19] MEDS: risperiDONE 1 MG TAB PO SCH ×2 (09:57→21:00)
[2016-11-19] MEDS: FAMOTIDINE 20 MG TAB PO SCH ×2 (09:57→21:00)
[2016-11-19] MEDS: TIMOLOL MALEATE 0.5% OPHT SOLN 5 ML BTL EACH EYE SCH ×2 (09:59→21:03)
[2016-11-19] MEDS ORDERED: FLUCONAZOLE 200 MG TAB PO ONE (11:30)
[2016-11-19] MEDS ORDERED: buPROPion HCL 75 MG TAB PO SCH (12:00)
--- NOTE | 2016-11-19 12:04 | HHI.PYPN ---
Subjective Remarks Patient was seen today for psychiatric reevaluation along with nurse in charge Sarah, patient was found in his bed calm and cooperative. Patient explains that he feels better today, but still feeling down and very sad. Patient says that he has been thinking about his recent actions, self harming behavior toward himself making him feel guilty and miserable. However, he says that he has the motivation to get better, to continue his life, to go to a rehabilitation program after he is better. At this moment the patient denies suicidal and homicidal ideation, he denies visual and auditory hallucinations. He does express concern about not being able to control himself if hallucinations, voices and visions of demons comes back. Patient continued endorsing total blindness "everything is black". He is fully oriented 3, no attention deficit, no gross cognitive impairment is observed. Patient has been fully compliant with his medications, no significant side effects are reported. Patient has been described as cooperative, but usually related and withdrawn, with limited interaction with staff. As per conversation with chrome worker this morning, patient continues to have fixed and dilated pupils, but he cannot find any structural abnormality accounting for his total blindness. Is his opinion that conversion disorder this to be carefully ruled out. Review of Systems Eyes: COMPLAINS OF: Eye pain, Vision loss Objective Alert: Yes [place]: Person, Place, Date, Situation Mood: Calm Affect: Appropriate Memory Intact: Immediate, Recent, Remote Hallucinations: Other (he denies at this moment) Delusions: No Delusion Type: Other (no delusions observed) Suicidal: Ideation (he denies) Homicidal: Ideation (he denies) Insight/Judgment Poor Labs Test 11/19/16 04:56 White Blood Count 9.0 TH/MM3 Red Blood Count 4.14 MIL/MM3 Hemoglobin 13.3 GM/DL Hematocrit 37.5 % Mean Corpuscular Volume 90.5 FL Mean Corpuscular Hemoglobin 32.3 PG Mean Corpuscular Hemoglobin 35.6 % Concent Red Cell Distribution Width 14.0 % Platelet Count 145 TH/MM3 Mean Platelet Volume 8.4 FL Neutrophils (%) (Auto) 77.5 % Lymphocytes (%) (Auto) 11.9 % Monocytes (%) (Auto) 7.7 % Eosinophils (%) (Auto) 2.7 % Basophils (%) (Auto) 0.2 % Neutrophils # (Auto) 7.0 TH/MM3 Lymphocytes # (Auto) 1.1 TH/MM3 Monocytes # (Auto) 0.7 TH/MM3 Eosinophils # (Auto) 0.2 TH/MM3 Basophils # (Auto) 0.0 TH/MM3 CBC Comment DIFF FINAL Differential Comment Sodium Level 139 MEQ/L Potassium Level 3.7 MEQ/L Chloride Level 103 MEQ/L Carbon Dioxide Level 29.0 MEQ/L Anion Gap 7 MEQ/L Blood Urea Nitrogen 6 MG/DL Creatinine 0.76 MG/DL Estimat Glomerular Filtration 119 ML/MIN Rate Random Glucose 86 MG/DL Calcium Level 9.1 MG/DL Phosphorus Level 2.8 MG/DL Magnesium Level 2.0 MG/DL Albumin 3.3 GM/DL Vitals/IOs Vital Signs Date Time Temp Pulse Resp B/P Pulse Ox O2 Delivery O2 Flow Rate FiO2 11/19/16 06:24 99.4 87 16 129/77 96 Intake and Output 11/18/16 11/18/16 11/19/16 08:00 16:00 00:00 Intake Total 480 ml 50 ml Balance 480 ml 50 ml Assessment & Plan Problem List: (1) Psychosis Assessment & Plan: Patient shows mild to moderate symptomatology of depression , we'll start Wellbutrin 75 mg twice a day. He denies perceptual disturbances at this moment, but he comments that he is is still afraid that hallucinations can come back and he might not know if he is going to act out to commanding type hallucinations. Will continue Risperdal 1 g twice a day. Patient is is still unpredictable and has a very high risk of harm to self: We' ll continue sitter. Hospitalist, neurology and ophthalmology consult reviewed and highly appreciated. As per neurology and ophthalmology, so for, no structural abnormality that could etiologically cause total blindness. We'll start working now in ruling out carefully conversion disorder, even though it looks unprovable. Extensive support, motivation psycho education provided. Family meeting will be scheduled for Tuesday. ICD Code: F29 Assessment & Plan Estimated LOS: days Justification for Cont. Inpt. Patient is to continue psychiatric hospitalization for stabilization Discharge Planning Patient needs to continue psychiatric hospitalization for stabilization Fletcher Hartman MD Nov 19, 2016 12:04
[2016-11-19 12:12] LABS: INDIRECT BILIRUBIN 0.8 MG/DL (0.0-0.8)
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
--- NOTE | 2016-11-19 14:46 | HHI.PR ---
Subjective Remarks Follow-up on patient with self-inflicted bilateral eye injury resulting in bilateral complete loss of vision. Patient seen and examined today. Patient reports slightly less pain today with swallowing. He continues to have complete loss of vision in both eyes. He denies any other complaints. No fever /chills, nausea/vomiting, shortness of breath, chest pain or abdominal pain. Objective Vitals Vital Signs Date Time Temp Pulse Resp B/P Pulse Ox O2 Delivery O2 Flow Rate FiO2 11/19/16 06:24 99.4 87 16 129/77 96 11/18/16 18:31 98.1 100 16 114/60 95 I/O 11/18/16 11/18/16 11/18/16 11/19/16 11/19/16 11/19/16 07:00 15:00 23:00 07:00 15:00 23:00 Intake Total 480 ml 50 ml 120 ml Balance 480 ml 50 ml 120 ml Intake Oral 480 ml 50 ml 120 ml # Voids 1 1 # Bowel Movements 0 Result Diagram: 11/19/16 0456 11/19/16 0456 Objective Remarks GENERAL: This is a well-nourished, well-developed patient, in no apparent distress. Sleeping easily arousable. Sitter at the bedside. SKIN: Warm and dry. HEAD: Atraumatic. Normocephalic. EYES: Pupils dilated and fixed, non-reactive to light. Orbit edema noted, R>L, some subconjunctival hemorrhage. Decreased extraocular movements. ENT: Nose without bleeding, purulent drainage or septal hematoma. Airway patent. Erythema with whitish plaque noted in her pharynx tonsils. NECK: Trachea midline. No lymphadenopathy. Tenderness noted to palpation anterior neck. CARDIOVASCULAR: Regular rate and rhythm without murmurs, gallops, or rubs. No JVD. RESPIRATORY: Clear to auscultation. Breath sounds equal bilaterally. No wheezes , rales, or rhonchi. GASTROINTESTINAL: Abdomen soft, non-tender, nondistended. No guarding. MUSCULOSKELETAL: Extremities without clubbing, cyanosis, or edema. NEUROLOGICAL: Awake and alert. Normal speech. Medications and IVs Current Medications Medications (Trade) Dose Ordered Sig/Eulalia Route Start Time Stop Time Status Last Admin (Ativan) 1 mg Q6H PRN PO 11/17/16 20:00 11/17/16 20:40 (Ativan Inj) 1 mg Q6H PRN IM 11/17/16 20:00 (Tylenol) 650 mg Q4H PRN PO 11/17/16 20:00 11/17/16 21:45 (Milk Of Magnesia Liq) 30 ml DAILY PRN PO 11/17/16 20:00 (Mag-Al Plus Susp Liq) 30 ml Q6H PRN PO 11/17/16 20:00 (Habitrol 21 Mg Patch.24 Hr) 1 patch DAILY T-DERMAL 11/18/16 09:00 Miscellaneous Information 1 HS T-DERMAL 11/18/16 21:00 (Haldol Inj) 2 mg Q6H PRN IM 11/17/16 21:30 (Alphagan 0.2% Opth Soln) 1 drop Q12HR EACH EYE 11/17/16 23:00 11/19/16 09:00 (Timoptic 0.5% Opth Soln) 1 drop Q12HR EACH EYE 11/17/16 23:00 11/19/16 09:59 (Zofran Inj) 4 mg Q6H PRN IV PUSH 11/17/16 21:30 (Pepcid) 20 mg BID PO 11/18/16 09:00 11/19/16 09:57 (Morphine Inj) 3 mg Q3H PRN IV PUSH 11/18/16 09:30 11/18/16 20:29 (Magic Mouthwash Adult Liq) 5 ml QID SWISH-SWAL 11/18/16 09:00 11/19/16 09:57 (risperDAL) 1 mg Q12HR PO 11/18/16 11:15 11/19/16 09:57 (Diflucan) 200 mg DAILY PO 11/20/16 09:00 12/03/16 08:59 (Wellbutrin) 75 mg Q12HR PO 11/19/16 12:00 Hold A/P Problem List: (1) Psychosis ICD Code: F29 Status: Acute (2) Eye injury ICD Code: S05.90XA Status: Acute Assessment and Plan Mr. Arshad is a 31 year old male who was discharged from ICU on 11/17/2016 after being treated for self inflicted bilateral eye injury. He was discharged to psychiatry unit and hospitalist service was consulted for medical management. Patient continues to have fixed, dilated pupils and complete loss of vision. Schizophrenia Depression - Management per psychiatry. - Patient is currently calm, cooperative. Self-inflicted bilateral eye injury Complete loss of vision, bilaterally - Dr. Holt (Ophthalmology) evaluated patient and indicated that globes were not ruptured. - Fixed, dilated pupils were noted by Dr. Holt's evaluation as well. - CT maxillofacial images reveal lens appear to be non-displaced. - Patient evaluated by Dr. Craft of ophthalmology. Per his note, lack of obvious findings or reasonable explanation to account for the degree of bilateral visual loss and recommended consideration of conversion reaction. - Neurology consulted. MRI and MRV to rule out possible venous sinus thrombosis were unremarkable. Bilateral eye pain - secondary to self inflicted trauma as stated above - Pain management Thrush - Magic mouthwash 4 times a day - Fluconazole was by mouth daily 14 days Hypokalemia - Resolved status post repletion DVT prophylaxis - encourage ambulation - Ana/HINA cleary Discussed with patient, nursing staff and Dianna Valladares Nov 19, 2016 14:46
[2016-11-19 18:56] VITALS: BP 128/83; PULSE 87; RESP 18; TEMP 98.6; O2SAT 98
--- NOTE | 2016-11-19 19:53 | EKG ---
Date Performed: 11/18/2016 Time Performed: 20:07:37 PTAGE: 31 years EKG: SINUS ARRHYTHMIA, otherwise normal EKG BORDERLINE ECG NO PREVIOUS TRACING DOCTOR: Jack Reed Interpretating Date/Time 11/19/2016 19:52:50
[2016-11-19] MEDS: REMOVE OLD NICOTINE PATCH T-DERMAL SCH (21:00)
[2016-11-20 06:09] VITALS: BP 139/88; PULSE 83; RESP 18; TEMP 99.7
[2016-11-20] MEDS: TIMOLOL MALEATE 0.5% OPHT SOLN 5 ML BTL EACH EYE SCH ×2 (08:17→21:37)
[2016-11-20] MEDS: NYSTAT/DIPHENHY/LIDO MOUTHWASH (Adult) 120ML SWISH-SWAL SCH ×4 (08:17→21:00)
[2016-11-20] MEDS: NICOTINE 21 MG/24 HR PATCH T-DERMAL SCH (08:17)
[2016-11-20] MEDS: FAMOTIDINE 20 MG TAB PO SCH ×2 (08:17→21:00)
[2016-11-20] MEDS: BRIMONIDINE TARTRATE 0.2% OPHT SOLN 5 ML BTL EACH EYE SCH ×2 (08:17→21:00)
[2016-11-20] MEDS: risperiDONE 1 MG TAB PO SCH ×2 (08:17→21:00)
[2016-11-20] MEDS: FLUCONAZOLE 200 MG TAB PO SCH (08:17)
--- NOTE | 2016-11-20 11:03 | HHI.PR ---
Subjective Remarks Follow-up on patient with self-inflicted bilateral eye injury resulting in bilateral complete loss of vision. Patient seen and examined today. Patient reports still having pain with swallowing although it is a little bit better. Per nursing staff, patient has been refusing all oral medications. Discussed with patient importance of taking fluconazole to help clear the yeast infection in his throat. Patient is agreeable and states he will take the medication starting today. Bowel movement last night. Patient denies any fever/chills, nausea/vomiting, shortness of breath, chest pain or abdominal pain. Patient denies any improvement in his eyesight, continues to endorse total blindness. Unable to make out light, shadows or shapes. Objective Vitals Vital Signs Date Time Temp Pulse Resp B/P Pulse Ox O2 Delivery O2 Flow Rate FiO2 11/20/16 06:09 99.7 83 18 139/88 11/19/16 18:56 98.6 87 18 128/83 98 I/O 11/19/16 11/19/16 11/19/16 11/20/16 11/20/16 11/20/16 07:00 15:00 23:00 07:00 15:00 23:00 Intake Total 50 ml 120 ml 0 ml 960 ml Balance 50 ml 120 ml 0 ml 960 ml Intake Oral 50 ml 120 ml 0 ml 960 ml # Voids 1 1 # Bowel Movements 0 1 Result Diagram: 11/19/16 0456 11/19/16 0456 Objective Remarks GENERAL: This is a well-nourished, well-developed patient, in no apparent distress. Sleeping easily arousable. Sitter at the bedside. SKIN: Warm and dry. HEAD: Atraumatic. Normocephalic. EYES: Pupils dilated and fixed, non-reactive to light. Orbit edema noted, R>L, some subconjunctival hemorrhage, improving. Decreased extraocular movements. ENT: Nose without bleeding, purulent drainage or septal hematoma. Airway patent. Erythema with whitish plaque noted in her pharynx tonsils. NECK: Trachea midline. No lymphadenopathy. Small incision left side of neck, healing well, staple intact. CARDIOVASCULAR: Regular rate and rhythm without murmurs, gallops, or rubs. No JVD. RESPIRATORY: Clear to auscultation. Breath sounds equal bilaterally. No wheezes , rales, or rhonchi. GASTROINTESTINAL: Abdomen soft, non-tender, nondistended. No guarding. MUSCULOSKELETAL: Extremities without clubbing, cyanosis, or edema. NEUROLOGICAL: Awake and alert. Normal speech. Medications and IVs Current Medications Medications (Trade) Dose Ordered Sig/Eulalia Route Start Time Stop Time Status Last Admin (Ativan) 1 mg Q6H PRN PO 11/17/16 20:00 11/17/16 20:40 (Ativan Inj) 1 mg Q6H PRN IM 11/17/16 20:00 (Tylenol) 650 mg Q4H PRN PO 11/17/16 20:00 11/17/16 21:45 (Milk Of Magnesia Liq) 30 ml DAILY PRN PO 11/17/16 20:00 (Mag-Al Plus Susp Liq) 30 ml Q6H PRN PO 11/17/16 20:00 (Habitrol 21 Mg Patch.24 Hr) 1 patch DAILY T-DERMAL 11/18/16 09:00 Miscellaneous Information 1 HS T-DERMAL 11/18/16 21:00 (Haldol Inj) 2 mg Q6H PRN IM 11/17/16 21:30 (Alphagan 0.2% Opth Soln) 1 drop Q12HR EACH EYE 11/17/16 23:00 11/20/16 08:17 (Timoptic 0.5% Opth Soln) 1 drop Q12HR EACH EYE 11/17/16 23:00 11/20/16 08:17 (Zofran Inj) 4 mg Q6H PRN IV PUSH 11/17/16 21:30 (Pepcid) 20 mg BID PO 11/18/16 09:00 11/19/16 09:57 (Morphine Inj) 3 mg Q3H PRN IV PUSH 11/18/16 09:30 11/18/16 20:29 (Magic Mouthwash Adult Liq) 5 ml QID SWISH-SWAL 11/18/16 09:00 11/20/16 08:17 (risperDAL) 1 mg Q12HR PO 11/18/16 11:15 11/19/16 09:57 (Diflucan) 200 mg DAILY PO 11/20/16 09:00 12/03/16 08:59 (Wellbutrin) 75 mg Q12HR PO 11/19/16 12:00 Hold A/P Problem List: (1) Psychosis ICD Code: F29 Status: Acute (2) Eye injury ICD Code: S05.90XA Status: Acute Assessment and Plan Mr. Arshad is a 31 year old male who was discharged from ICU on 11/17/2016 after being treated for self inflicted bilateral eye injury. He was discharged to psychiatry unit and hospitalist service was consulted for medical management. Patient continues to have fixed, dilated pupils and complete loss of vision. Schizophrenia Depression - Management per psychiatry. - Patient is currently calm, cooperative. Self-inflicted bilateral eye injury Complete loss of vision, bilaterally - Dr. Holt (Ophthalmology) evaluated patient and indicated that globes were not ruptured. - Fixed, dilated pupils were noted by Dr. Holt's evaluation as well. - CT maxillofacial images reveal lens appear to be non-displaced. - Patient evaluated by Dr. Craft of ophthalmology. Per his note, lack of obvious findings or reasonable explanation to account for the degree of bilateral visual loss and recommended consideration of conversion reaction. - Neurology consulted. MRI and MRV to rule out possible venous sinus thrombosis were unremarkable. Bilateral eye pain - secondary to self inflicted trauma as stated above - Pain management Thrush - Magic mouthwash 4 times a day - Fluconazole was by mouth daily 14 days Hypokalemia - Resolved status post repletion DVT prophylaxis - encourage ambulation - Ana/HINA cleary Discussed with patient, nursing staff and Dianna Valladares Nov 20, 2016 11:02
[2016-11-20 18:42] VITALS: BP 135/91; PULSE 89; RESP 18; TEMP 98; O2SAT 96
[2016-11-20] MEDS: REMOVE OLD NICOTINE PATCH T-DERMAL SCH (21:00)
[2016-11-21 05:40] VITALS: BP 123/71; PULSE 71; RESP 20; TEMP 98.5; O2SAT 96
[2016-11-21] MEDS: risperiDONE 1 MG TAB PO SCH ×2 (09:00→21:00)
[2016-11-21] MEDS: FLUCONAZOLE 200 MG TAB PO SCH (09:00)
[2016-11-21] MEDS: NYSTAT/DIPHENHY/LIDO MOUTHWASH (Adult) 120ML SWISH-SWAL SCH ×4 (09:00→21:00)
[2016-11-21] MEDS: FAMOTIDINE 20 MG TAB PO SCH ×2 (09:00→21:00)
[2016-11-21] MEDS: NICOTINE 21 MG/24 HR PATCH T-DERMAL SCH (09:00)
[2016-11-21] MEDS: BRIMONIDINE TARTRATE 0.2% OPHT SOLN 5 ML BTL EACH EYE SCH ×2 (09:09→21:27)
[2016-11-21] MEDS: TIMOLOL MALEATE 0.5% OPHT SOLN 5 ML BTL EACH EYE SCH ×2 (09:09→21:27)
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
[2016-11-21 18:00] VITALS: BP 125/78; PULSE 76; RESP 18; TEMP 98.4; O2SAT 97
[2016-11-21] MEDS: REMOVE OLD NICOTINE PATCH T-DERMAL SCH (21:00)
[2016-11-22 06:02] VITALS: BP 127/76; PULSE 68; RESP 16; TEMP 98.3; O2SAT 97
[2016-11-22] MEDS: FAMOTIDINE 20 MG TAB PO SCH ×2 (09:00→21:00)
[2016-11-22] MEDS: BRIMONIDINE TARTRATE 0.2% OPHT SOLN 5 ML BTL EACH EYE SCH ×2 (09:00→21:37)
[2016-11-22] MEDS: NICOTINE 21 MG/24 HR PATCH T-DERMAL SCH (09:00)
[2016-11-22] MEDS: NYSTAT/DIPHENHY/LIDO MOUTHWASH (Adult) 120ML SWISH-SWAL SCH ×4 (09:00→21:00)
[2016-11-22] MEDS: FLUCONAZOLE 200 MG TAB PO SCH (09:00)
[2016-11-22] MEDS: risperiDONE 1 MG TAB PO SCH ×2 (10:18→21:35)
[2016-11-22] MEDS: TIMOLOL MALEATE 0.5% OPHT SOLN 5 ML BTL EACH EYE SCH ×2 (10:19→21:36)
--- NOTE | 2016-11-22 14:13 | HHI.PYPN ---
Subjective Remarks Pt seen and discussed with staff. He had been refusing all oral medications, but with RN encouragement was compliant with eye drops and risperidone. He appears to be responding to internal stimuli. He is quite flat and disengaged. He remains on 1:1 for safety. Objective Alert: Yes [place]: Person, Place, Date, Situation Mood: Depressed Affect: Flat Memory Intact: Immediate, Recent, Remote Hallucinations: Other (appears internally stimulated) Delusions: Yes Delusion Type: Paranoid Suicidal: Ideation (he denies) Homicidal: Ideation (he denies) Insight/Judgment poor Vitals/IOs Vital Signs Date Time Temp Pulse Resp B/P Pulse Ox O2 Delivery O2 Flow Rate FiO2 11/22/16 06:02 98.3 68 16 127/76 97 Intake and Output 11/21/16 11/21/16 11/22/16 08:00 16:00 00:00 Intake Total 960 ml Output Total 1 ml Balance 959 ml Assessment & Plan Problem List: (1) Psychosis ICD Code: F29 Assessment & Plan Continue to encourage medication compliance. Continue hospitalization for safety. Estimated LOS: days Justification for Cont. Inpt. impairments in safety and reality construction. complicating medical condition. My Shanks MD Nov 22, 2016 14:13
[2016-11-22 18:54] VITALS: BP 118/74; PULSE 73; RESP 18; TEMP 98.8
[2016-11-22] MEDS: REMOVE OLD NICOTINE PATCH T-DERMAL SCH (21:00)
[2016-11-23 05:16] VITALS: BP 126/75; PULSE 70; RESP 18; TEMP 98; O2SAT 98
[2016-11-23] MEDS: NICOTINE 21 MG/24 HR PATCH T-DERMAL SCH (09:00)
[2016-11-23] MEDS: NYSTAT/DIPHENHY/LIDO MOUTHWASH (Adult) 120ML SWISH-SWAL SCH ×4 (09:00→20:37)
[2016-11-23] MEDS: FLUCONAZOLE 200 MG TAB PO SCH (12:20)
[2016-11-23] MEDS: FAMOTIDINE 20 MG TAB PO SCH ×2 (12:20→20:38)
[2016-11-23] MEDS: TIMOLOL MALEATE 0.5% OPHT SOLN 5 ML BTL EACH EYE SCH ×2 (12:21→20:39)
[2016-11-23] MEDS: BRIMONIDINE TARTRATE 0.2% OPHT SOLN 5 ML BTL EACH EYE SCH ×2 (12:21→20:39)
[2016-11-23] MEDS: risperiDONE 1 MG TAB PO SCH ×2 (12:21→20:39)
--- NOTE | 2016-11-23 14:12 | HHI.PYPN ---
Subjective Remarks Patient was seen for psychiatric evaluation, he is calm, but reticent, irritable , superficially cooperative. He seems to be internally stimulated. He endorses sadness and depression for his eye situation. He denies SI/HI/VAH. His mother Becki Hatch, who came to visit the patient today clarifies he does nto have any previous psychiatric history, others that his drugs use. He never had any similar episode in the past. She also denies any history of sexual, philological or emotional abuse. Objective Alert: Yes [place]: Person, Place, Date, Situation Mood: Depressed Affect: Flat Memory Intact: Immediate, Recent, Remote Hallucinations: Other (appears internally stimulated) Delusions: Yes Delusion Type: Other Suicidal: Ideation (he denies) Homicidal: Ideation (he denies) Insight/Judgment Poor Vitals/IOs Vital Signs Date Time Temp Pulse Resp B/P Pulse Ox O2 Delivery O2 Flow Rate FiO2 11/23/16 05:16 98.0 70 18 126/75 98 Intake and Output 11/22/16 11/22/16 11/23/16 08:00 16:00 00:00 Intake Total 240 ml 240 ml 600 ml Balance 240 ml 240 ml 600 ml Assessment & Plan Problem List: (1) Psychosis Assessment & Plan: Will increase Risperdal to 2 mg bid, restart Wellbutrin 100 mg bid for mood. ICD Code: F29 Assessment & Plan Estimated LOS: days Justification for Cont. Inpt. Patient continues to be acutely psychotic, needs impatient level of care for safety and stabilization Fletcher Hartman MD Nov 23, 2016 14:12
[2016-11-23 18:08] VITALS: BP 115/69; PULSE 69; TEMP 98.2; O2SAT 97
[2016-11-23] MEDS: REMOVE OLD NICOTINE PATCH T-DERMAL SCH (20:37)
[2016-11-23] MEDS: buPROPion HCL 100 MG TAB PO SCH (20:38)
[2016-11-24 05:38] VITALS: BP 112/63; PULSE 68; RESP 16; TEMP 98.3; O2SAT 98
[2016-11-24] MEDS: FLUCONAZOLE 200 MG TAB PO SCH (08:12)
[2016-11-24] MEDS: FAMOTIDINE 20 MG TAB PO SCH ×2 (08:12→21:00)
[2016-11-24] MEDS: buPROPion HCL 100 MG TAB PO SCH ×2 (08:12→21:00)
[2016-11-24] MEDS: BRIMONIDINE TARTRATE 0.2% OPHT SOLN 5 ML BTL EACH EYE SCH ×2 (08:12→21:00)
[2016-11-24] MEDS: risperiDONE 1 MG TAB PO SCH ×2 (08:12→21:00)
[2016-11-24] MEDS: TIMOLOL MALEATE 0.5% OPHT SOLN 5 ML BTL EACH EYE SCH ×2 (08:13→21:00)
[2016-11-24] MEDS: NICOTINE 21 MG/24 HR PATCH T-DERMAL SCH (08:13)
[2016-11-24] MEDS: NYSTAT/DIPHENHY/LIDO MOUTHWASH (Adult) 120ML SWISH-SWAL SCH ×5 (08:13→21:00)
--- NOTE | 2016-11-24 10:01 | HHI.PYPN ---
Subjective Remarks Patient seen for psychiatric reevaluation today, patient is calm and cooperative , explains that he has been feeling better, sad because "I don't know was going to happen with my future, are no was not happy with my sight on my addiction". He feels kind of hopeless, helpless, but endorses motivation and commitment to follow recommendations and do better. He continues to be a little bit internally preoccupied, distant, however he denies visual and auditory hallucinations. He has been a little more active in the unit, yesterday he went out to group activity, he says that he enjoyed it. Review of Systems Eyes: COMPLAINS OF: Vision loss Objective Alert: Yes [place]: Person, Place, Date, Situation Mood: Depressed Affect: Flat Memory Intact: Immediate, Recent, Remote Hallucinations: Other (appears internally stimulated) Delusions: Yes Delusion Type: Other Suicidal: Ideation (he denies) Homicidal: Ideation (he denies) Insight/Judgment Poor Vitals/IOs Vital Signs Date Time Temp Pulse Resp B/P Pulse Ox O2 Delivery O2 Flow Rate FiO2 11/24/16 05:38 98.3 68 16 112/63 98 Intake and Output 11/23/16 11/23/16 11/24/16 08:00 16:00 00:00 Intake Total 480 ml 720 ml 960 ml Balance 480 ml 720 ml 960 ml Assessment & Plan Problem List: (1) Psychosis ICD Code: F29 Assessment & Plan Estimated LOS: days Justification for Cont. Inpt. Patient needs to continue psychiatric hospitalization for stabilization and safety. Fletcher Hartman MD Nov 24, 2016 10:01
[2016-11-24 20:37] VITALS: BP 119/58; PULSE 73; RESP 18; TEMP 98.2; O2SAT 96
[2016-11-24] MEDS: REMOVE OLD NICOTINE PATCH T-DERMAL SCH (21:00)
[2016-11-25 05:23] VITALS: BP 119/75; PULSE 69; RESP 16; TEMP 97.8; O2SAT 96
[2016-11-25] MEDS: NYSTAT/DIPHENHY/LIDO MOUTHWASH (Adult) 120ML SWISH-SWAL SCH ×4 (08:47→21:00)
[2016-11-25] MEDS: risperiDONE 1 MG TAB PO SCH ×2 (08:47→21:00)
[2016-11-25] MEDS: FAMOTIDINE 20 MG TAB PO SCH ×2 (08:47→21:00)
[2016-11-25] MEDS: FLUCONAZOLE 200 MG TAB PO SCH (08:47)
[2016-11-25] MEDS: buPROPion HCL 100 MG TAB PO SCH ×2 (08:47→21:00)
[2016-11-25] MEDS: NICOTINE 21 MG/24 HR PATCH T-DERMAL SCH (08:48)
[2016-11-25] MEDS: TIMOLOL MALEATE 0.5% OPHT SOLN 5 ML BTL EACH EYE SCH ×2 (08:48→21:00)
[2016-11-25] MEDS: BRIMONIDINE TARTRATE 0.2% OPHT SOLN 5 ML BTL EACH EYE SCH ×2 (08:48→21:00)
--- NOTE | 2016-11-25 11:50 | HHI.PYPN ---
Subjective Remarks On somatic evaluation today patient is found having his breakfast, he reports better mood than yesterday, 11/08, however patient reports moments of tears, and sadness, hopelessness, generalized pessimism, but denies suicidal or homicidal ideation, he denies visual and auditory hallucinations. Patient says that he hasn't had any thoughts of harming himself and he hasn't had any impulse "like the one I had when I inserted a pen in my eyes". Patient is fully oriented 3, no attention deficit, no fluctuation of consciousness observed. He has been cooperative, calm, no agitation or aggressive behavior observed, he has been compliant with his medications. Review of Systems Other No somatic complaints Objective Alert: Yes [place]: Person, Place, Date, Situation Mood: Depressed Affect: Flat Memory Intact: Immediate, Recent, Remote Hallucinations: Other (appears internally stimulated) Delusions: Yes Delusion Type: Other Suicidal: Ideation (he denies) Homicidal: Ideation (he denies) Insight/Judgment Improve Vitals/IOs Vital Signs Date Time Temp Pulse Resp B/P Pulse Ox O2 Delivery O2 Flow Rate FiO2 11/25/16 05:23 97.8 69 16 119/75 96 Intake and Output 11/24/16 11/24/16 11/24/16 07:59 15:59 23:59 Intake Total 600 ml 240 ml 720 ml Balance 600 ml 240 ml 720 ml Assessment & Plan Problem List: (1) Psychosis ICD Code: F29 (2) Major depressive disorder Assessment & Plan: Would continue current psychotropics, no changes. Encouraged the patient to be compliant with medications, get out of bed, participate in group activities. ICD Code: F32.9 Assessment & Plan Estimated LOS: days Justification for Cont. Inpt. Patient needs more psychiatric hospitalization for stabilization and safety, also for medication adjustment. Problem Qualifiers (1) Major depressive disorder: Fletcher Hartman MD Nov 25, 2016 11:50
[2016-11-25] MEDS: REMOVE OLD NICOTINE PATCH T-DERMAL SCH (21:00)
[2016-11-25 21:18] VITALS: BP 126/75; PULSE 75; RESP 16; TEMP 98.2; O2SAT 96
[2016-11-26 06:15] VITALS: BP 120/81; PULSE 58; RESP 18; TEMP 98.6; O2SAT 97
[2016-11-26] MEDS: TIMOLOL MALEATE 0.5% OPHT SOLN 5 ML BTL EACH EYE SCH ×2 (08:55→22:15)
[2016-11-26] MEDS: BRIMONIDINE TARTRATE 0.2% OPHT SOLN 5 ML BTL EACH EYE SCH ×2 (08:55→22:15)
[2016-11-26] MEDS: buPROPion HCL 100 MG TAB PO SCH ×2 (08:56→22:15)
[2016-11-26] MEDS: risperiDONE 1 MG TAB PO SCH ×2 (08:56→22:14)
[2016-11-26] MEDS: FAMOTIDINE 20 MG TAB PO SCH ×2 (08:59→21:00)
[2016-11-26] MEDS: NICOTINE 21 MG/24 HR PATCH T-DERMAL SCH (08:59)
[2016-11-26] MEDS: FLUCONAZOLE 200 MG TAB PO SCH (08:59)
[2016-11-26] MEDS: NYSTAT/DIPHENHY/LIDO MOUTHWASH (Adult) 120ML SWISH-SWAL SCH ×4 (08:59→21:00)
--- NOTE | 2016-11-26 15:53 | HHI.PYPN ---
Subjective Remarks Patient is seen today for psychiatric evaluation, he reports improved mood, 5/10 , improve appetite and level of energy and concentration, he denies suicidal or homicidal ideation, he denies visual and auditory hallucinations. Patient has been fully compliant with medications, no significant side effects.. Review of Systems Other No somatic complaints other than blindness Objective Alert: Yes [place]: Person, Place, Date, Situation Mood: Depressed Affect: Flat Memory Intact: Immediate, Recent, Remote Hallucinations: Other (appears internally stimulated) Delusions: Yes Delusion Type: Other Suicidal: Ideation (he denies) Homicidal: Ideation (he denies) Insight/Judgment Fair Vitals/IOs Vital Signs Date Time Temp Pulse Resp B/P Pulse Ox O2 Delivery O2 Flow Rate FiO2 11/26/16 06:15 98.6 58 18 120/81 97 Intake and Output 11/25/16 11/25/16 11/26/16 08:00 16:00 00:00 Intake Total 500 ml 360 ml 760 ml Balance 500 ml 360 ml 760 ml Assessment & Plan Problem List: (1) Psychosis ICD Code: F29 (2) Major depressive disorder ICD Code: F32.9 Assessment & Plan Estimated LOS: days Justification for Cont. Inpt. Patient is still difficult hospitalization for safety and stabilization of psychosis and mood symptoms Problem Qualifiers (1) Major depressive disorder: Fletcher Hartman MD Nov 26, 2016 15:53
[2016-11-26 19:59] VITALS: BP 121/69; PULSE 85; RESP 18; TEMP 98.3; O2SAT 96
[2016-11-26] MEDS: REMOVE OLD NICOTINE PATCH T-DERMAL SCH (21:00)
[2016-11-26] MEDS: LORazepam 1 MG TAB PO PRN (22:14)
[2016-11-26] MEDS: ACETAMINOPHEN 325 MG TAB PO PRN (22:15)
[2016-11-27 06:23] VITALS: BP 126/80; PULSE 61; RESP 18; TEMP 97.8; O2SAT 96
[2016-11-27] MEDS: FAMOTIDINE 20 MG TAB PO SCH ×2 (09:00→21:36)
[2016-11-27] MEDS: NICOTINE 21 MG/24 HR PATCH T-DERMAL SCH (09:00)
[2016-11-27] MEDS: NYSTAT/DIPHENHY/LIDO MOUTHWASH (Adult) 120ML SWISH-SWAL SCH ×4 (09:00→21:00)
[2016-11-27] MEDS: FLUCONAZOLE 200 MG TAB PO SCH (09:11)
[2016-11-27] MEDS: risperiDONE 1 MG TAB PO SCH ×2 (09:11→21:36)
[2016-11-27] MEDS: buPROPion HCL 100 MG TAB PO SCH (09:11)
[2016-11-27] MEDS: TIMOLOL MALEATE 0.5% OPHT SOLN 5 ML BTL EACH EYE SCH ×2 (09:12→21:36)
[2016-11-27] MEDS: BRIMONIDINE TARTRATE 0.2% OPHT SOLN 5 ML BTL EACH EYE SCH ×2 (09:12→21:36)
--- NOTE | 2016-11-27 12:44 | HHI.PYPN ---
Subjective Remarks Patient was seen today for psychiatric reevaluation, patient is found in his bed , he is calm, cooperative but he seemed to be very distant, disengaged, hypoactive, objectively depressed. However, he reports improvement in his mood , today12/08, patient says that he is motivated and hopeful that things can be better in his life and his sight is going to return. He denies suicidal or homicidal ideation, he denies visual and auditory hallucinations. Oriented 3, compliant with medications. Review of Systems Other No somatic complaints Objective Alert: Yes [place]: Person, Place, Date, Situation Mood: Depressed Affect: Flat Memory Intact: Immediate, Recent, Remote Hallucinations: Other (appears internally stimulated) Delusions: Yes Delusion Type: Other Suicidal: Ideation (he denies) Homicidal: Ideation (he denies) Insight/Judgment Poor Vitals/IOs Vital Signs Date Time Temp Pulse Resp B/P Pulse Ox O2 Delivery O2 Flow Rate FiO2 11/27/16 06:23 97.8 61 18 126/80 96 Intake and Output 11/26/16 11/26/16 11/27/16 08:00 16:00 00:00 Intake Total 320 ml Balance 320 ml Assessment & Plan Problem List: (1) Psychosis ICD Code: F29 (2) Major depressive disorder Assessment & Plan: Will increase Wellbutrin 150 mg twice a day for depression ICD Code: F32.9 Assessment & Plan Estimated LOS: days Justification for Cont. Inpt. Patient continues to be depressed, internally preoccupied, unpredictable, he needs to continue psychiatric hospitalization for stabilization Problem Qualifiers (1) Major depressive disorder: Fletcher Hartman MD Nov 27, 2016 12:43
[2016-11-27 17:10] VITALS: BP 124/79; PULSE 71; RESP 18; TEMP 98.2; O2SAT 97
[2016-11-27] MEDS: REMOVE OLD NICOTINE PATCH T-DERMAL SCH (21:00)
[2016-11-27] MEDS: buPROPion HCL 75 MG TAB PO SCH (21:36)
[2016-11-28 06:55] VITALS: BP 123/65; PULSE 74; RESP 18; TEMP 98.1; O2SAT 98
[2016-11-28] MEDS: ACETAMINOPHEN 325 MG TAB PO PRN ×2 (08:20→22:29)
[2016-11-28] MEDS: risperiDONE 1 MG TAB PO SCH ×2 (08:20→22:19)
[2016-11-28] MEDS: BRIMONIDINE TARTRATE 0.2% OPHT SOLN 5 ML BTL EACH EYE SCH ×2 (08:20→22:18)
[2016-11-28] MEDS: buPROPion HCL 75 MG TAB PO SCH ×2 (08:20→22:19)
[2016-11-28] MEDS: TIMOLOL MALEATE 0.5% OPHT SOLN 5 ML BTL EACH EYE SCH ×2 (08:21→22:18)
[2016-11-28] MEDS: FLUCONAZOLE 200 MG TAB PO SCH (08:43)
[2016-11-28] MEDS: FAMOTIDINE 20 MG TAB PO SCH ×2 (08:43→22:19)
[2016-11-28] MEDS: NYSTAT/DIPHENHY/LIDO MOUTHWASH (Adult) 120ML SWISH-SWAL SCH ×4 (08:43→21:00)
[2016-11-28] MEDS: NICOTINE 21 MG/24 HR PATCH T-DERMAL SCH (08:43)
[2016-11-28] MEDS ORDERED: ONDANSETRON ODT 4 MG TAB PO ONE (12:30)
--- NOTE | 2016-11-28 14:09 | HHI.PYPN ---
Subjective Remarks Patient was seeing for psychiatric evaluation in the patio of the psychiatric units. Patient reports improved mood, good appetite, he is to have some difficulty sleeping at night, but denies suicidal ideation, denies visual and auditory hallucinations. Patient is fully oriented 3, no agitation or aggressive behavior reported, compliant with medications. Review of Systems Other No somatic complaint Objective Alert: Yes [place]: Person, Place, Date, Situation Mood: Depressed Affect: Flat Memory Intact: Immediate, Recent, Remote Hallucinations: Other (appears internally stimulated) Delusions: Yes Delusion Type: Other Suicidal: Ideation (he denies) Homicidal: Ideation (he denies) Insight/Judgment Fair Vitals/IOs Vital Signs Date Time Temp Pulse Resp B/P Pulse Ox O2 Delivery O2 Flow Rate FiO2 11/28/16 10:02 18 11/28/16 06:55 98.1 74 123/65 98 Intake and Output 11/27/16 11/27/16 11/28/16 08:00 16:00 00:00 Intake Total 1040 ml 360 ml 660 ml Balance 1040 ml 360 ml 660 ml Assessment & Plan Problem List: (1) Psychosis ICD Code: F29 (2) Major depressive disorder ICD Code: F32.9 Assessment & Plan Estimated LOS: days Justification for Cont. Inpt. Patient is to continue psychiatric hospitalization for stabilization and safety Problem Qualifiers (1) Major depressive disorder: Fletcher Hartman MD Nov 28, 2016 14:09
[2016-11-28 19:36] VITALS: BP 126/59; PULSE 83; RESP 16; TEMP 97.9; O2SAT 98
[2016-11-28] MEDS: REMOVE OLD NICOTINE PATCH T-DERMAL SCH (21:00)
[2016-11-29 06:20] VITALS: BP 118/67; PULSE 71; RESP 16; TEMP 98.3; O2SAT 94
[2016-11-29] MEDS: risperiDONE 1 MG TAB PO SCH ×2 (08:41→20:58)
[2016-11-29] MEDS: TIMOLOL MALEATE 0.5% OPHT SOLN 5 ML BTL EACH EYE SCH ×2 (08:42→20:58)
[2016-11-29] MEDS: buPROPion HCL 75 MG TAB PO SCH ×2 (08:42→20:57)
[2016-11-29] MEDS: BRIMONIDINE TARTRATE 0.2% OPHT SOLN 5 ML BTL EACH EYE SCH ×2 (08:42→20:58)
[2016-11-29] MEDS: NYSTAT/DIPHENHY/LIDO MOUTHWASH (Adult) 120ML SWISH-SWAL SCH ×4 (09:00→20:58)
[2016-11-29] MEDS: NICOTINE 21 MG/24 HR PATCH T-DERMAL SCH (09:00)
[2016-11-29] MEDS: FLUCONAZOLE 200 MG TAB PO SCH (09:00)
[2016-11-29] MEDS: FAMOTIDINE 20 MG TAB PO SCH ×2 (09:00→20:58)
--- NOTE | 2016-11-29 15:18 | HHI.PYPN ---
Subjective Remarks Patient seen today for psychiatric evaluation, patient reports improved mood, denies depressive symptoms, he expresses his motivation to be discharged back home and is starting his way to sobriety and to get back his vision. Patient denies suicidal or homicidal ideation, he denies visual and auditory hallucinations. Patient is oriented 3. Medication compliant. Review of Systems Other No somatic complaints Objective Alert: Yes [place]: Person, Place, Date, Situation Mood: Depressed Affect: Flat Memory Intact: Immediate, Recent, Remote Hallucinations: Other (appears internally stimulated) Delusions: Yes Delusion Type: Other Suicidal: Ideation (he denies) Homicidal: Ideation (he denies) Insight/Judgment Good Vitals/IOs Vital Signs Date Time Temp Pulse Resp B/P Pulse Ox O2 Delivery O2 Flow Rate FiO2 11/29/16 06:20 98.3 71 16 118/67 94 Intake and Output 11/28/16 11/28/16 11/29/16 08:00 16:00 00:00 Intake Total 480 ml 400 ml 980 ml Balance 480 ml 400 ml 980 ml Assessment & Plan Problem List: (1) Psychosis ICD Code: F29 (2) Major depressive disorder ICD Code: F32.9 Assessment & Plan Estimated LOS: days Justification for Cont. Inpt. Patient has shown significant improvement with psychotropics and psychotherapy. Most probably would be discharged tomorrow morning. Problem Qualifiers (1) Major depressive disorder: Fletcher Hartman MD November 29, 2016 15:18
[2016-11-29 18:00] VITALS: BP 117/69; PULSE 76; RESP 17; TEMP 98; O2SAT 95
[2016-11-29] MEDS: REMOVE OLD NICOTINE PATCH T-DERMAL SCH (20:58)
[2016-11-29] MEDS: LORazepam 1 MG TAB PO PRN (22:10)
[2016-11-29] MEDS: ACETAMINOPHEN 325 MG TAB PO PRN (22:10)
[2016-11-30 05:29] VITALS: BP 128/74; PULSE 76; RESP 16; TEMP 98.4; O2SAT 99
[2016-11-30] MEDS ORDERED: TIMO0.5S30 EACH EYE (08:55)
[2016-11-30] MEDS ORDERED: RISP1 PO (08:55)
[2016-11-30] MEDS ORDERED: ONDA4TAB7 PO (08:55)
[2016-11-30] MEDS ORDERED: Brimonidine 0.2% Opth Soln EACH EYE (08:55)
[2016-11-30] MEDS ORDERED: BUPR75TA PO (08:55)
[2016-11-30] MEDS: FLUCONAZOLE 200 MG TAB PO SCH (09:00)
[2016-11-30] MEDS: FAMOTIDINE 20 MG TAB PO SCH (09:00)
[2016-11-30] MEDS: NICOTINE 21 MG/24 HR PATCH T-DERMAL SCH (09:00)
[2016-11-30] MEDS ORDERED: ONDANSETRON ODT 4 MG TAB PO PRN (09:00)
[2016-11-30] MEDS: NYSTAT/DIPHENHY/LIDO MOUTHWASH (Adult) 120ML SWISH-SWAL SCH (09:00)
[2016-11-30] MEDS ORDERED: risperiDONE 1 MG TAB PO SCH (09:00)
[2016-11-30] MEDS: BRIMONIDINE TARTRATE 0.2% OPHT SOLN 5 ML BTL EACH EYE SCH (09:04)
[2016-11-30] MEDS: TIMOLOL MALEATE 0.5% OPHT SOLN 5 ML BTL EACH EYE SCH (09:04)
[2016-11-30] MEDS ORDERED: buPROPion HCL 75 MG TAB PO SCH (10:00)
--- NOTE | 2016-11-30 13:06 | HHI.DS ---
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 Patient was initially admitted in psychiatry and seen by Dr. Burch due to a suicidal attempt by stabbing his neck , but while in the psychiatric floor he inserted a pen in his left and right eyes and for this reason he was transferred to the ED. Patient was brought to the ED and was intubated by emergency department attending for airway protection due to extreme agitation and combativeness. Patient was evaluated by mash tub cooker operator Dr. Holt and was subsequently admitted to ICU. Ophthalmology evaluation indicated no ruptured globe. Intraocular pressure was elevated due to eyelid edema and conjunctival ecchymosis. Patient continues to have fixed, dilated pupils and complete loss of vision. Today on psychiatric evaluation patient is following his bed calm and cooperative. Patient was interviewed by psychiatric team composed of psychologist social, nurse in charge and psychiatrist. Patient seems to be logical, coherent and relevant. He explains that he doesn't really know what happened and he feels ashamed for what he did with his eyes. He says that he was not himself and he has been hearing voices telling him to kill himself. He also has been seeing things "people, demons and shadows". Patient states that perceptual disturbances are usually related to the use of drugs. He says that for the last years he has been continuously using alcohol every day, but also every time he came he uses heroine, amphetamines, [place], K2, marijuana and cocaine. He says that he has been unable to stop using drugs and for this reason he has lost everything that has meaning in his life, including his family and friends. He says that he understands that he is dysfunctional human being and a charge for the society and he becomes very depressed for this reason. Now, when he is stabbing himself in his neck he was very paranoid after using multiple psychoactive substances and he thought that people were running after him in order to harm him. Regarding inserting a pain in his eyes and eating his ears, he says that this is an idea that he had had already in the past in the context of intoxication when he is having visual and auditory hallucinations. At this moment the patient reports depression, hopelessness, helplessness, severe anhedonia, but he denies suicidal and homicidal ideation, he denies visual and auditory hallucinations. Patient says that he would love to be a functional person, to find a job and go back to that human being he was. Patient gave us permission to speak with his mother, but he says that he doesn't want to speak with any family. He is fully oriented 3, no confusion, no delirium, no gross cognitive impairment observed.. Tobacco Use In Past 30 Days: Cigarettes But Not Daily Alcohol Use: 4 or More Times Per Week Hospital Course Patient was admitted in the med psych unit where he was transferred from the medical floor. He was initially admitted in regular psychiatry with psychosis induced by multiple drugs. In the psychiatric unit he inserted a pen in both eyes and was transferred to medical floor, to ICU where he was intubated to protect airways, his eyes were taken care of by ophthalmology. After this incident patient became blind. Once in the med psych unit, appropriate safety measure were taken. Psychosocial and psychiatric assessment were performed. Patient was restarted in antipsychotic, Risperdal and antidepressants, Wellbutrin. These medications were increased as patient could tolerate and as was necessary. Immediate counseling, individual and group psychotherapy was started. While in the unit patient had a sitter for safety. With the days patient showed a good response and to psychotropics and psychotherapy. Patient was able to verbalize and insightful commitment and motivation to get better and to stop using drugs. Patient was able to recognize that he was using multiple drugs that were messing his brain. He explained that he was having visions of demons and "fire" "and I was not myself, I was very disorganized"the day he decided to insert a pain in his eyes. A family meeting with his mother was performed, his mother gave us a lot of useful information about patient's history. She agreed in taking the patient back home once psychiatrically stable. Patient was seen by hospitalist and ophthalmology during the hospitalization. At some point the mash tub cooker operator expressed his concern about the complete blindness of the patient is stating the structural damage of his eyes were not severe enough to cause a total blindness and he thought that a conversion disorder could be possible. However, we could not find any indication or strong suspicion for conversion disorder. At the moment of the discharge patient reports improved mood, he denies depression, he denies anhedonia, he reports motivation to get better, to follow medical recommendations and appointments. He has been fully compliant with his medications. No agitation or aggressive behavior, delusions, internal preoccupation, paranoia are present at the moment of the discharge. Patient denies suicidal or homicidal ideation, patient denies visual and auditory hallucinations. Patient is clear in his plan of avoiding drugs, going to his appointments, meeting with the division of blind services to plan assistance. Patient was finally psychiatrically cleared to be discharged back to his mother house with his mother. Results Blood Pressure 128 / 74 Vital Signs Date Time Temp Pulse Resp B/P Pulse Ox O2 Delivery O2 Flow Rate FiO2 11/30/16 05:29 98.4 76 16 128/74 99 Reviewed Summary of Procedures Patient had exploratory surgery of his eyes. Imaging Last Impressions Head/Brain Mag Res Venography 11/18/16 0000 Signed Impressions: Service Date/Time: October 13:08 - CONCLUSION: Unremarkable study. Raúl Mock MD Brain MRI 11/18/16 0000 Signed Impressions: Service Date/Time: October 13:08 - CONCLUSION: Unremarkable study. Raúl Mock MD Pending results at discharge: No Medications # of Antipsychotic meds at D/C: 1 Approp Antipsych med options 1 - Minimum of three failed multiple trials of monotherapy. 2 - Documented plan to taper to monotherapy due to previous use of multiple meds OR cross-taper in progress at D/C. 3 - Documentation of augmentation of Clozapine. 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 His speech is soft, low volume, but is spontaneous and fluent. His mood is "much better", affect is restricted. Thought process is logical, coherent and relevant. Thought content is devoid of SI, HI, VH, AH, no paranoia, no delusions, no internal stimulation present. Insight, impulse control, judgment is improved. Memory is intact. Pt Condition on Discharge: Stable Discharge Disposition: Discharge Home Discharge Instructions Diet Instructions: As Tolerated, No Restrictions Activities you can perform: Regular-No Restrictions Scheduled Appointment: [facility] Appointment Date: December 02, 2016 Appointment Time: 07:30am Discharge Time > 30 minutes Discharge/Advance Care Plan Health Problems: (1) Psychosis (2) Major depressive disorder Goals to promote your health * To prevent worsening of your condition and complications * To maintain your health at the optimal level Directions to meet your goals Take your medications as prescribed Follow your dietary instruction Follow activity as directed Keep your appointments as scheduled Take your immunizations and boosters as scheduled If your symptoms worsen call your PCP, if no PCP go to Urgent Care Center or Emergency Room For 21/02 questions related to your inpatient stay or results of tests pending at discharge, please contact Dr. Fletcher Hartman at Smoking is Dangerous to Your Health. Avoid second hand smoking Problem Qualifiers (1) Major depressive disorder: Fletcher Hartman MD November 30, 2016 13:06
== END 2016-11-30 10:23 | disposition home or self-care (01) | DRG 897 ==
LOC: H4EA 10:54
PROVIDERS: ADMIT Psychiatry & Neurology Psychiatry; ATTEND Psychiatry & Neurology Psychiatry
DX: F19.951 Other psychoactive substance use, unspecified with psychoactive substance-induced psychotic disorder with hallucinations (principal); B37.89 Other sites of candidiasis; S05.91XA Unspecified injury of right eye and orbit, initial encounter; S05.92XA Unspecified injury of left eye and orbit, initial encounter; H54.0 Blindness, both eyes; X83.8XXA Intentional self-harm by other specified means, initial encounter; Y92.239 Unspecified place in hospital as the place of occurrence of the external cause; F32.9 Major depressive disorder, single episode, unspecified; Z72.0 Tobacco use; Z59.0 Homelessness; H57.13 Ocular pain, bilateral; H11.33 Conjunctival hemorrhage, bilateral; E87.6 Hypokalemia
CPT/HCPCS: 70546; 70553; 80048; 80061; 80069; 80076; 83036; 83735; 85025; 93005; A9579; J2270; J2405; J3480